=== PATIENT | female | born 1960 | race Caucasian/White ===

== ENCOUNTER 2017-04-25 09:54 | Emergency (ER) | payer OTHER ==
[2017-04-25 10:11] VITALS: BMI 25.3
--- NOTE | 2017-04-25 10:38 | PDOC ---
History of Present Illness - General History Source: Patient Exam Limitations: No Limitations - History of Present Illness Initial Comments: 04/25/17 11:46 The patient is a 56 year old female, with a significant past medical history of HTN, gallstones and chronic back pain s/p surgery (2012 and 2013), who presents to the emergency department with headache and neck pain for the past 3 days. She describes her headahce as diffused throughout her head, ranging from moderate to severe, with radiation down her neck and her back. She notes that she has been taking Tylenol for the pain, sometimes after 4 at a time, with minimal relief of her pain. She states that she has followed up with her PMD regarding the pain and as been prescribed Tylenol. She notes that she usually has headaches but not usually to this severity. The last time the patient was in the ED was in 10/2016 for a headache. She was discharged same day after improvement of symptoms. She also reports dizziness associated with her chief complaint. The patient denies chest pain and shortness of breath. Denies fever, chills, nausea, vomit, diarrhea and constipation. Allergies: None Past surgical history: Cholecystectomy, back surgery (2012, 2013) (At [place]) Social history: No alcohol, tobacco or drug use repoted <Neo Holt - Last Filed: 04/25/17 11:46> <Kwasi Cifuentes - Last Filed: 04/25/17 15:00> - General Chief Complaint: Headache Stated Complaint: HEADACHE Time Seen by Provider: 04/25/17 10:37 Past History <Neo Holt - Last Filed: 04/25/17 11:46> - Past Medical History HTN: Yes Suicide Attempt (Hx): No - Surgical History Abdominal Surgery: Yes (GALLSTONES REMOVED) Cholecystectomy: Yes - Psycho/Social/Smoking Cessation Hx Anxiety: No Suicidal Ideation: No Smoking Status: No Smoking History: Never smoked Have you smoked in the past 12 months: No Number of Cigarettes Smoked Daily: 0 Information on smoking cessation initiated: No Hx Alcohol Use: No Drug/Substance Use Hx: No Substance Use Type: None <Kwasi Cifuentes - Last Filed: 04/25/17 15:00> - Past Medical History Allergies/Adverse Reactions: Allergies Allergy/AdvReac Type Severity Reaction Status Date / Time No Known Allergies Allergy Verified 04/25/17 10:00 Home Medications: Ambulatory Orders Lisinopril [Prinivil -] 50 mg PO DAILY 08/21/16 Cyclobenzaprine HCl [Flexeril 10 mg] 10 mg PO TID PRN #30 tablet 04/25/17 Hydrochlorothiazide [Hctz -] 25 mg PO DAILY 04/25/17 Ibuprofen [Motrin -] 600 mg PO TID #90 tablet 04/25/17 Ondansetron [Zofran *Odt*] 8 mg SL TID #60 od.tablet 04/25/17 Oxycodone HCl/Acetaminophen [Percocet 5-325 mg Tablet] 2 tab PO Q4H #20 tablet MDD 6 04/25/17 Review of Systems - Review of Systems Able to Perform ROS?: Yes Comments:: 04/25/17 11:47 GENERAL/CONSTITUTIONAL: No fever or chills. No weakness. HEAD, EYES, EARS, NOSE AND THROAT: No change in vision. No ear pain or discharge. No sore throat. CARDIOVASCULAR: No chest pain or shortness of breath RESPIRATORY: No cough, wheezing, or hemoptysis. GASTROINTESTINAL: No nausea, vomiting, diarrhea or constipation. GENITOURINARY: No dysuria, frequency, or change in urination. MUSCULOSKELETAL: (+) Neck pain and back pain. No joint or muscle swelling or pain. SKIN: No rash NEUROLOGIC: (+) Headache. No vertigo, loss of consciousness, or change in strength/sensation. ENDOCRINE: No increased thirst. No abnormal weight change HEMATOLOGIC/LYMPHATIC: No anemia, easy bleeding, or history of blood clots. ALLERGIC/IMMUNOLOGIC: No hives or skin allergy. <Neo Holt - Last Filed: 04/25/17 11:46> *Physical Exam - Vital Signs Last Vital Signs Temp Pulse Resp BP Pulse Ox 97.7 F 80 18 148/86 100 04/25/17 10:01 04/25/17 10:01 04/25/17 10:01 04/25/17 10:01 04/25/17 10:01 - Physical Exam Comments: 04/25/17 11:47 GENERAL: Awake, alert, and fully oriented, in no acute distress HEAD: No signs of trauma, normocephalic, atraumatic EYES: PERRLA, EOMI, sclera anicteric, conjunctiva clear ENT: Auricles normal inspection, hearing grossly normal, nares patent, oropharynx clear without exudates. Moist mucosa NECK: Normal ROM, supple, no lymphadenopathy, JVD, or masses LUNGS: No distress, speaks full sentences, clear to auscultation bilaterally HEART: Regular rate and rhythm, normal S1 and S2, no murmurs, rubs or gallops, peripheral pulses normal and equal bilaterally. ABDOMEN: Soft, nontender, normoactive bowel sounds. No guarding, no rebound. No masses EXTREMITIES: Normal inspection, Normal range of motion, no edema. No clubbing or cyanosis. NEUROLOGICAL: (+) Detailed nuero testing revealed weakness in the right hand, arm in the C5-C6 level. Cranial nerves II through XII grossly intact. Normal speech, normal gait, no focal sensorimotor deficits SKIN: Warm, Dry, normal turgor, no rashes or lesions noted. <Neo Holt - Last Filed: 04/25/17 11:46> - Vital Signs Last Vital Signs Temp Pulse Resp BP Pulse Ox 97.7 F 80 18 148/86 100 04/25/17 10:01 04/25/17 10:01 04/25/17 10:01 04/25/17 10:01 04/25/17 10:01 <Kwasi Cifuentes - Last Filed: 04/25/17 15:00> ED Treatment Course - Medications Given in the ED: ED Medications Discontinued Medications Generic Name Dose Route Start Last Admin Trade Name Freq PRN Reason Stop Dose Admin Cyclobenzaprine HCl 10 mg 04/25/17 10:55 04/25/17 11:31 Flexeril - PO 04/25/17 10:56 10 mg ONCE ONE Administration Ondansetron HCl 8 mg 04/25/17 10:55 04/25/17 11:31 Zofran Odt - SL 04/25/17 10:56 8 mg ONCE ONE Administration Oxycodone/Acetaminophen 2 combo 04/25/17 10:55 04/25/17 11:31 Percocet 5/325 - PO 04/25/17 10:56 2 combo ONCE ONE Administration <Neo Holt - Last Filed: 04/25/17 11:46> *DC/Admit/Observation/Transfer - Attestations Scribe Attestion: 04/25/17 11:48 Documentation prepared by Neo Holt, acting as medical malpractice paralegal for Kwasi Cifuentes MD <Neo Hlot - Last Filed: 04/25/17 11:46> - Discharge Dispostion Admit: No - Attestations Physician Attestion: 04/25/17 10:38 I, Dr. Kwasi Cifuentes, attest that this document has been prepared under my direction and personally reviewed by me in its entirety. I further attest, that it accurately reflects all work, treatment, procedures and medical decision -making performed by me. <Kwasi Cifuentes - Last Filed: 04/25/17 15:00> Diagnosis at time of Disposition: Cervical radiculopathy at C6 - Discharge Dispostion Disposition: HOME Condition at time of disposition: Improved - Prescriptions Prescriptions: Cyclobenzaprine HCl [Flexeril 10 mg] 10 mg PO TID PRN #30 tablet PRN Reason: spasm Ibuprofen [Motrin -] 600 mg PO TID #90 tablet Oxycodone HCl/Acetaminophen [Percocet 5-325 mg Tablet] 2 tab PO Q4H #20 tablet MDD 6 Ondansetron [Zofran *Odt*] 8 mg SL TID #60 od.tablet - Referrals Referrals: Stephenie Cao [Primary Care Provider] - Fernie Martin [Non Staff, Medical] - - Patient Instructions Printed Discharge Instructions: DI for Cervical Radiculopathy Additional Instructions: Yakelin - So sorry that this hurts you so much. I wrote some anti inflammatory medicines , medicine for spasm and another medicine in case these medicines upset your stomach....... Percocet and Motrin, Flexeril and ZofranODT. Follow up with Neurology and you might consider getting a referral to pain managment. Return to us any problems. Follow up with your doctor later this week. Best- Dr. Kwasi Cifuentes
[2017-04-25] MEDS ORDERED: ONDANSETRON *ODT* 4 MG TABLET SL ONE (10:55)
[2017-04-25] MEDS ORDERED: CYCLOBENZAPRINE HCL 10 MG TABLET (FP) PO ONE (10:55)
[2017-04-25] MEDS ORDERED: OXYCODONE/APAP 5/325MG COMBO TABLET PO ONE (10:55)
[2017-04-25] MEDS ORDERED: ONDANSETRON *ODT* 4 MG TABLET ONE (11:02)
[2017-04-25] MEDS ORDERED: CYCLOBENZAPRINE HCL 10 MG TABLET (FP) ONE (11:02)
[2017-04-25] MEDS ORDERED: OXYCODONE/APAP 5/325MG COMBO TABLET ONE (11:02)
[2017-04-25 14:01] VITALS: BP 126/73; PULSE 78; TEMP 98.2
== END 2017-04-25 15:07 | disposition home or self-care (01) ==
LOC: JER 09:54
DX: M54.12 Radiculopathy, cervical region (principal); I10 Essential (primary) hypertension
CPT/HCPCS: 70450-TC; 72125-TC; 99282-25

== ENCOUNTER 2017-09-18 08:41 | Emergency (ER) | payer OTHER ==
[2017-09-18 08:45] VITALS: TEMP 98.5; BMI 27.0
--- NOTE | 2017-09-18 08:58 | PDOC ---
History of Present Illness - General History Source: Patient Exam Limitations: No Limitations - History of Present Illness Initial Comments: 09/18/17 09:07 The patient is a 57 year old female, with a significant past medical history of HTN and migraines, who presents to the emergency department with low back pain, chest pain, palpitations and headache to the left side of her head, neck and arm since yesterday. She describes her headache as ranging from moderate to severe, with radiation to her head. She notes that the pain is exacerbated with light. She also reports nausea and dizziness associated with her chief complaint. She describes her lower back pain as ranging from mild to moderate, without radiation or modifying factors. She notes that her chest pain is sharp in nature, without radiation or modifying factors. The patient does have a history of migraines and has come to the ED for evaluation in the past. She notes that her headache today is worse than before. She states that she has take ibuprofen and Tylenol in the past with minimal to no relieve of her symptoms. The patient denies chest pain, shortness of breath, fever, chills, vomit, diarrhea and constipation. Denies dysuria, frequency, urgency and hematuria. Allergies: None Past surgical history: Cholecystectomy, spinal fusion (2012, 2013) Social history: No alcohol, tobacco or drug use reported <Neo Holt - Last Filed: 09/18/17 09:11> <Valerie Garcia - Last Filed: 09/18/17 11:29> - General Chief Complaint: Head/Neck problem Stated Complaint: PAIN/ HEAD, BACK, ARMS Time Seen by Provider: 09/18/17 08:58 Past History <Neo Holt - Last Filed: 09/18/17 09:11> - Past Medical History HTN: Yes - Surgical History Abdominal Surgery: Yes Cholecystectomy: Yes - Suicide/Smoking/Psychosocial Hx Smoking Status: No Smoking History: Never smoked Have you smoked in the past 12 months: No Number of Cigarettes Smoked Daily: 0 Hx Alcohol Use: No Drug/Substance Use Hx: No Substance Use Type: None <Valerie Garcia - Last Filed: 09/18/17 11:29> - Past Medical History Allergies/Adverse Reactions: Allergies Allergy/AdvReac Type Severity Reaction Status Date / Time No Known Allergies Allergy Verified 04/25/17 10:00 Home Medications: Ambulatory Orders Lisinopril [Prinivil -] 50 mg PO DAILY 08/21/16 Hydrochlorothiazide [Hctz -] 25 mg PO DAILY 04/25/17 Ibuprofen [Motrin -] 600 mg PO TID #90 tablet 04/25/17 Review of Systems - Review of Systems Able to Perform ROS?: Yes Comments:: 09/18/17 09:07 GENERAL/CONSTITUTIONAL: No fever or chills. No weakness. HEAD, EYES, EARS, NOSE AND THROAT: (+) Blurry vision. No ear pain or discharge. No sore throat.- CARDIOVASCULAR: (+) Chest pain. No shortness of breath RESPIRATORY: No cough, wheezing, or hemoptysis. GASTROINTESTINAL: (+) Nausea. No vomiting, diarrhea or constipation. GENITOURINARY: No dysuria, frequency, or change in urination. MUSCULOSKELETAL: No joint or muscle swelling or pain. No neck or back pain. SKIN: No rash NEUROLOGIC: (+) Headache and dizziness. No loss of consciousness, or change in strength/sensation. ENDOCRINE: No increased thirst. No abnormal weight change HEMATOLOGIC/LYMPHATIC: No anemia, easy bleeding, or history of blood clots. ALLERGIC/IMMUNOLOGIC: No hives or skin allergy. <Neo Holt - Last Filed: 09/18/17 09:11> *Physical Exam - Vital Signs Last Vital Signs Temp Pulse Resp BP Pulse Ox 98.5 F 98 H 20 160/99 98 09/18/17 08:42 09/18/17 08:42 09/18/17 08:42 09/18/17 08:42 09/18/17 08:42 - Physical Exam Comments: 09/18/17 09:07 GENERAL: Awake, alert, and fully oriented, in no acute distress HEAD: No signs of trauma, normocephalic, atraumatic EYES: PERRLA, EOMI, sclera anicteric, conjunctiva clear ENT: Auricles normal inspection, hearing grossly normal, nares patent, oropharynx clear without exudates. Moist mucosa NECK: Normal ROM, supple, no lymphadenopathy, JVD, or masses LUNGS: No distress, speaks full sentences, clear to auscultation bilaterally HEART: Regular rate and rhythm, normal S1 and S2, no murmurs, rubs or gallops, peripheral pulses normal and equal bilaterally. ABDOMEN: Soft, nontender, normoactive bowel sounds. No guarding, no rebound. No masses EXTREMITIES : Normal inspection, Normal range of motion, no edema. No clubbing or cyanosis. NEUROLOGICAL: Cranial nerves II through XII grossly intact. Normal speech, normal gait, no focal sensorimotor deficits SKIN: Warm, Dry, normal turgor, no rashes or lesions noted. <Neo Holt - Last Filed: 09/18/17 09:11> - Vital Signs Last Vital Signs Temp Pulse Resp BP Pulse Ox 98.5 F 98 H 20 160/99 98 09/18/17 08:42 09/18/17 08:42 09/18/17 08:42 09/18/17 08:42 09/18/17 08:42 <Valerie Garcia - Last Filed: 09/18/17 11:29> Medical Decision Making - Medical Decision Making 09/18/17 11:26 Pt presents to the ED complaining of migraine that is typical of her chronic migraine headaches. Denies new complaints. pain is gradual onset and unrelieved by tylenol. + relief after toradol and reglan. Will discharge home. 09/18/17 11:27 <Valerie Garcia - Last Filed: 09/18/17 11:29> *DC/Admit/Observation/Transfer - Attestations Scribe Attestion: 09/18/17 09:07 Documentation prepared by Neo Holt, acting as medical chemist for Dr. Gambino <Neo Holt - Last Filed: 09/18/17 09:11> - Discharge Dispostion Admit: No <Valerie Garcia - Last Filed: 09/18/17 11:29> Diagnosis at time of Disposition: Migraine headache Qualifiers: Migraine type: without aura Status migrainosus presence: without status migrainosus Intractability: not intractable Qualified Code(s): G43.009 - Migraine without aura, not intractable, without status migrainosus; G43.009 - Migraine without aura, not intractable, without status migrainosus; G43.009 - Migraine without aura, not intractable, without status migrainosus - Discharge Dispostion Disposition: HOME Condition at time of disposition: Good - Referrals Referrals: Stephenie Cao [Primary Care Provider] - - Patient Instructions Printed Discharge Instructions: DI for Migraine Additional Instructions: return to the ED for severe headache, headache with fever or confusion, weakness on one side of your body or face. Make sure that you follow up with your doctor.
[2017-09-18] MEDS ORDERED: METOCLOPRAMIDE HCL INJECTION 10 MG/2 ML VIAL IVPUSH ONE (09:35)
[2017-09-18] MEDS ORDERED: SODIUM CHLORIDE 0.9% 1000 ML INFUS.BAG IV ONE (09:41)
[2017-09-18] MEDS ORDERED: METOCLOPRAMIDE HCL INJECTION 10 MG/2 ML VIAL ONE (09:46)
[2017-09-18] MEDS ORDERED: KETOROLAC TROMETHAMINE 30 MG/1 ML VIAL IVPUSH ONE (10:16)
[2017-09-18] MEDS ORDERED: KETOROLAC TROMETHAMINE 30 MG/1 ML VIAL ONE (10:57)
[2017-09-18 11:56] VITALS: BP 160/90; PULSE 64
== END 2017-09-18 11:57 | disposition home or self-care (01) ==
LOC: JER 08:41
PROC: 3E0333Z Introduction of Anti-inflammatory into Peripheral Vein, Percutaneous Approach (ICD-10-PCS; principal; 2017-09-18)
PROC: 3E033GC Introduction of Other Therapeutic Substance into Peripheral Vein, Percutaneous Approach (ICD-10-PCS; 2017-09-18)
DX: G43.009 Migraine without aura, not intractable, without status migrainosus (principal)
CPT/HCPCS: 96374; 96375; 99284-25

== ENCOUNTER 2017-11-07 17:45 | Observation (INO) | payer OTHER ==
--- NOTE | 2017-11-07 17:56 | PDOC ---
Rapid Medical Evaluation Chief Complaint: Blood Pressure Problem Time Seen by Provider: 11/07/17 17:50 Medical Evaluation: Allergies Allergy/AdvReac Type Severity Reaction Status Date / Time No Known Allergies Allergy Verified 11/07/17 17:48 11/07/17 17:51 The patient presents with a chief complaint of: Bruising of R leg from cardiac cath site with pain to palpation. Catheterization done 2 weeks ago. No stents placed. C/o high BP I have performed a brief in-person evaluation of this patient; Pertinent physical exam findings 198/113 BP. TTP of R thigh over the bruising. No hematoma noted I have ordered the following: CBC, CMP, PT/INR, The patient will proceed to the ED for further evaluation.
--- NOTE | 2017-11-07 18:33 | PDOC ---
History of Present Illness <Alaina Hudson - Last Filed: 11/07/17 21:28> <Luly Gramajo - Last Filed: 11/08/17 00:07> - General Chief Complaint: Blood Pressure Problem Stated Complaint: BLOOD PRESSURE PROBLEM Time Seen by Provider: 11/07/17 17:50 - History of Present Illness Initial Comments: 11/07/17 18:51 The patient presents with her and son. The patient is Bengali speaking and her son translated to obtain the history. The patient is a 57 year old female, with a significant past medical history of HTN and migraines, who presents to the emergency department with lightheadedness , chest tightness nausea, and high blood pressure today. The patient reports she feels she will faint if she stands for too long. She reports feeling nauseous, but denies vomiting. The patient reports feeling sweaty at the onset of her chest tightness and lightheadedness. She reports her BP is 120s over something at baseline, however, presents with a BP of 197/108 at time of presentation. The patient denies chest pain, shortness of breath, fever, chills, vomit, diarrhea and constipation. Denies dysuria, frequency, urgency and hematuria. Allergies: None Past surgical history: Cholecystectomy, spinal fusion (2012, 2013) Social history: No alcohol, tobacco or drug use reported (Alaina Hudson) Past History <Alaina Hudson - Last Filed: 11/07/17 21:28> - Past Medical History COPD: No HTN: Yes - Surgical History Abdominal Surgery: Yes Cholecystectomy: Yes - Suicide/Smoking/Psychosocial Hx Smoking Status: No Smoking History: Never smoked Have you smoked in the past 12 months: No Number of Cigarettes Smoked Daily: 0 Information on smoking cessation initiated: No Hx Alcohol Use: No Drug/Substance Use Hx: No Substance Use Type: None <Luly Gramajo - Last Filed: 11/08/17 00:07> - Past Medical History Allergies/Adverse Reactions: Allergies Allergy/AdvReac Type Severity Reaction Status Date / Time No Known Allergies Allergy Verified 11/07/17 17:48 Home Medications: Ambulatory Orders Lisinopril [Prinivil -] 50 mg PO DAILY 08/21/16 Hydrochlorothiazide [Hctz -] 25 mg PO DAILY 04/25/17 Ibuprofen [Motrin -] 600 mg PO PRN 11/07/17 Review of Systems - Review of Systems Able to Perform ROS?: Yes <Alaina Hudson - Last Filed: 11/07/17 21:28> <Luly Gramajo - Last Filed: 11/08/17 00:07> - Review of Systems Comments:: 11/07/17 18:51 CONSTITUTIONAL: Absent: fever, chills, diaphoresis, generalized weakness, malaise, loss of appetite HEENT: Absent: rhinorrhea, nasal congestion, throat pain, throat swelling, difficulty swallowing, mouth swelling, ear pain, eye pain, visual Changes CARDIOVASCULAR: (+) chest tightness, lightheadedness, hypertension. Absent: syncope, palpitations, irregular heart rate, peripheral edema RESPIRATORY: Absent: cough, shortness of breath, dyspnea with exertion, orthopnea, wheezing, stridor, hemoptysis GASTROINTESTINAL: (+) nausea. Absent: abdominal pain, abdominal distension, vomiting, diarrhea, constipation, melena, hematochezia GENITOURINARY: Absent: dysuria, frequency, urgency, hesitancy, hematuria, flank pain, genital pain MUSCULOSKELETAL: Absent: myalgia, arthralgia, joint swelling SKIN: Absent: rash, itching, pallor HEMATOLOGIC/IMMUNOLOGIC: Absent: easy bleeding, easy bruising, lymphadenopathy, frequent infections ENDOCRINE: Absent: unexplained weight gain, unexplained weight loss, heat intolerance, cold intolerance NEUROLOGIC: Absent: headache, focal weakness or paresthesias, dizziness, unsteady gait, seizure, mental status changes, bladder or bowel incontinence PSYCHIATRIC: Absent: anxiety, depression, suicidal or homicidal ideation, hallucinations. (Alaina Hudson) *Physical Exam <Alaina Hudson - Last Filed: 11/07/17 21:28> <Luly Gramajo - Last Filed: 11/08/17 00:07> - Vital Signs Last Vital Signs Temp Pulse Resp BP Pulse Ox 98.4 F 73 17 149/86 97 11/07/17 18:26 11/07/17 21:29 11/07/17 21:29 11/07/17 21:29 11/07/17 21:29 - Physical Exam Comments: 11/07/17 18:52 GENERAL: Well developed, well nourished. Awake and alert. No acute distress. HEENT: Normocephalic, atraumatic. PERRLA, EOMI. No conjunctival pallor. Sclera are non- icteric. Moist mucous membranes. Oropharynx is clear. NECK: Supple. Full ROM. No JVD. Carotid pulses 2+ and symmetric, without bruits. No thyromegaly. No lymphadenopathy. CARDIOVASCULAR: Regular rate and rhythm. No murmurs, rubs, or gallops. Distal pulses are 2+ and symmetric. PULMONARY: (+) hyperventilating on exam. No evidence of respiratory distress. Lungs clear to auscultation bilaterally. No wheezing, rales or rhonchi. ABDOMINAL: Soft. Non-tender. Non-distended. No rebound or guarding. No organomegaly. Normoactive bowel sounds. MUSCULOSKELETAL Normal range of motion at all joints. No bony deformities or tenderness. No CVA tenderness. EXTREMITIES: No cyanosis. No clubbing. No edema. No calf tenderness. SKIN: Warm and dry. Normal capillary refill. No rashes. No jaundice. NEUROLOGICAL: Alert, awake, appropriate. Cranial nerves 2-12 intact. Normoreflexic in the upper and lower extremities. Normal speech. Toes are down-going bilaterally. Gait is normal without ataxia. PSYCHIATRIC: Cooperative. Good eye contact. Appropriate mood and affect. (Alaina Hudson) Heart Score/ECG Review <Alaina Hudson - Last Filed: 11/07/17 21:28> - History History: Slightly suspicious - Electrocardiogram EKG: Normal - Age Age: 45-65 - Risk Factors Risk Factors Heart Score: Yes Hx Hypertension, Yes Positive family hx of cardiac disease Based on the list above the patient has:: 1-2 risk factors - Troponin Troponin: </= normal limit - Score Heart Score - Total: 2 <Luly Gramajo - Last Filed: 11/08/17 00:07> - ECG Intrepretation Comment:: 11/07/17 18:[address] Gramajo at 18:46 Impression: Normal sinus rhythm. Vent Rate: 60 bpm NM Interval: 146 ms QTc: 436 ms (Alaina Hudson) ED Treatment Course - LABORATORY CBC & Chemistry Diagram: 11/07/17 18:45 11/07/17 18:45 <Alaina Hudson - Last Filed: 11/07/17 21:28> - LABORATORY CBC & Chemistry Diagram: 11/07/17 18:45 11/07/17 18:45 <Luly Gramajo - Last Filed: 11/08/17 00:07> - ADDITIONAL ORDERS Additional order review: Laboratory Results 11/07/17 11/07/17 11/07/17 18:45 18:45 18:45 PT with INR 10.80 INR 0.96 Sodium 140 Potassium 4.1 Chloride 108 H Carbon Dioxide 28 D Anion Gap 4 L BUN 14 Creatinine 0.8 Creat Clearance w eGFR > 60 Random Glucose 91 Calcium 8.5 Magnesium 2.3 Total Bilirubin 0.2 AST 21 ALT 21 Alkaline Phosphatase 107 Creatine Kinase 106 Troponin I < 0.02 B-Natriuretic Peptide 127.70 H Total Protein 7.4 Albumin 3.6 Triglycerides 80 Cholesterol 152 Total LDL Cholesterol 67 HDL Cholesterol 74 H Blood Type A POSITIVE Antibody Screen Negative 11/07/17 18:45 RBC 4.15 MCV 88.8 MCHC 33.0 RDW 14.6 MPV 8.2 Neutrophils % 47.8 Lymphocytes % 41.0 H D Monocytes % 9.5 Eosinophils % 0.9 Basophils % 0.8 - RADIOLOGY Radiology Studies Ordered: Category Date Time Status CHEST X-RAY PORTABLE* [RAD] Stat Radiology 11/07/17 18:35 Taken - Medications Given in the ED: ED Medications Discontinued Medications Generic Name Dose Route Start Last Admin Trade Name Freq PRN Reason Stop Dose Admin Aspirin 325 mg 11/07/17 18:34 11/07/17 18:54 Asa - PO 11/07/17 18:35 Not Given ONCE ONE Aspirin 325 mg 11/07/17 18:35 11/07/17 18:43 Asa - PO 11/07/17 18:36 325 mg ONCE ONE Administration Hydrochlorothiazide 25 mg 11/07/17 20:25 11/07/17 20:33 Hctz - PO 11/07/17 20:26 25 mg ONCE ONE Administration Nitroglycerin 0.4 mg 11/07/17 18:34 11/07/17 18:43 Nitrostat - SL 11/07/17 18:35 0.4 mg ONCE ONE Administration Medical Decision Making <Alaina Hudson - Last Filed: 11/07/17 21:28> <Luly Gramajo - Last Filed: 11/08/17 00:07> - Medical Decision Making 11/07/17 21:28 Dr. Vitale, patient's extract wringer, was paged via phone answering service at this time requesting a call back for doctor to doctor consult. I have been informed Dr. Martino will return the call. (Alaina Hudson) *DC/Admit/Observation/Transfer <Alaina Hudson - Last Filed: 11/07/17 21:28> - Discharge Dispostion Admit: Yes <Luly Gramajo - Last Filed: 11/08/17 00:07> Diagnosis at time of Disposition: Hypertensive urgency Chest pain Qualifiers: Chest pain type: unspecified Qualified Code(s): R07.9 - Chest pain, unspecified - Attestations Scribe Attestion: 11/07/17 18:53 Documentation prepared by Alaina Hudson, acting as ophthalmic medical technologist for Luly Gramajo MD (Alaina Hudson)
[2017-11-07] MEDS ORDERED: ASPIRIN 325 MG TABLET PO ONE ×2 (18:34→18:35)
[2017-11-07] MEDS ORDERED: NITROGLYCERIN SUBLINGUAL 1/150 0.4 MG TAB SL ONE (18:34)
[2017-11-07] MEDS ORDERED: ASPIRIN 325 MG TABLET ONE (18:44)
[2017-11-07 19:16] LABS: BASOPHIL 0.8 % (0-2.0); EOSINOPHIL 0.9 % (0-4.5); MCH 29.3 pg (25.7-33.7); MEAN CELL VOLUME 88.8 fl (80-96); MEAN PLT VOLUME 8.2 fl (7.5-11.1); NEUTROPHILS 47.8 % (42.8-82.8); PLATELET COUNT 334 K/MM3 (134-434); RDW 14.6 % (11.6-15.6); WHITE BLOOD COUNT 7.4 K/mm3 (4.0-10.0)
[2017-11-07 19:43] LABS: INR 0.96 (0.82-1.09); PROTHROMBIN TIME (PATIENT) 10.8 SEC (9.98-11.88)
[2017-11-07 19:48] LABS: ALBUMIN 3.6 g/dl (3.4-5.0); ANION GAP 4 (8-16); CALCIUM 8.5 mg/dL (8.5-10.1); CHOLESTEROL 152 mg/dL (50-200); CO2 28 mmol/L (21-32); GLUCOSE,RANDOM 91 mg/dL (74-106); MAGNESIUM 2.3 mg/dL (1.8-2.4); SGOT/AST 21 U/L (15-37); SGPT/ALT 21 U/L (12-78)
[2017-11-07 19:52] LABS: ALK PHOS 107 U/L (45-117); BILIRUBIN,TOTAL 0.2 mg/dL (0.2-1.0); CPK 106 IU/L (26-192); CREATININE 0.8 mg/dL (0.55-1.02); TOT PROT 7.4 g/dl (6.4-8.2); TROPONIN I < 0.02 ng/ml (0.00-0.05)
[2017-11-07] MEDS ORDERED: HYDROCHLOROTHIAZIDE 25 MG TABLET (FP) PO ONE (20:25)
[2017-11-07] MEDS ORDERED: HYDROCHLOROTHIAZIDE 25 MG TABLET (FP) ONE (20:30)
--- NOTE | 2017-11-07 22:54 | HP ---
Admitting History and Physical - Primary Care Physician PCP: Sergio Reza - Admission History of Present Illness: The patient presents with her and son. The patient is Malay speaking and her son translated to obtain the history. The patient is a 57 year old female, with a significant past medical history of HTN and migraines, who presents to the emergency department with lightheadedness , chest tightness nausea, and high blood pressure today. The patient reports she feels she will faint if she stands for too long. She reports feeling nauseous, but denies vomiting. The patient reports feeling sweaty at the onset of her chest tightness and lightheadedness. She reports her BP is 120s over something at baseline, however, presents with a BP of 197/108 at time of presentation. 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 Home Medications - Allergies Allergies/Adverse Reactions: Allergies Allergy/AdvReac Type Severity Reaction Status Date / Time No Known Allergies Allergy Verified 11/07/17 17:48 - Home Medications Home Medications: Ambulatory Orders Lisinopril [Prinivil -] 50 mg PO DAILY 08/21/16 Hydrochlorothiazide [Hctz -] 25 mg PO DAILY 04/25/17 Ibuprofen [Motrin -] 600 mg PO PRN 11/07/17 Physical Examination Vital Signs: Vital Signs Temperature 98.4 F 11/07/17 18:26 Pulse Rate 73 11/07/17 21:29 Respiratory Rate 17 11/07/17 21:29 Blood Pressure 149/86 11/07/17 21:29 O2 Sat by Pulse Oximetry (%) 97 11/07/17 21:29 Constitutional: Yes: No Distress HENT: Yes: Atraumatic Neck: Yes: Supple Cardiovascular: Yes: Regular Rate and Rhythm Respiratory: Yes: CTA Bilaterally Gastrointestinal: Yes: Normal Bowel Sounds Extremities: Yes: WNL Neurological: Yes: Alert, Oriented Labs: CBC, BMP 11/07/17 18:45 11/07/17 18:45 Problem List - Problems (1) Chest pain Code(s): R07.9 - CHEST PAIN, UNSPECIFIED Qualifiers: Chest pain type: unspecified Qualified Code(s): R07.9 - Chest pain, unspecified (2) Hypertensive urgency Code(s): I10 - ESSENTIAL (PRIMARY) HYPERTENSION Assessment/Plan Laboratory Tests 11/07/17 11/07/17 11/07/17 18:45 18:45 18:45 WBC 7.4 RBC 4.15 Hgb 12.2 D Hct 36.8 MCV 88.8 MCH 29.3 MCHC 33.0 RDW 14.6 Plt Count 334 MPV 8.2 Neutrophils % 47.8 Lymphocytes % 41.0 H D Monocytes % 9.5 Eosinophils % 0.9 Basophils % 0.8 PT with INR 10.80 INR 0.96 Sodium 140 Potassium 4.1 Chloride 108 H Carbon Dioxide 28 D Anion Gap 4 L BUN 14 Creatinine 0.8 Creat Clearance w eGFR > 60 Random Glucose 91 Calcium 8.5 Magnesium 2.3 Total Bilirubin 0.2 AST 21 ALT 21 Alkaline Phosphatase 107 Creatine Kinase 106 Troponin I < 0.02 B-Natriuretic Peptide 127.70 H Total Protein 7.4 Albumin 3.6 Triglycerides 80 Cholesterol 152 Total LDL Cholesterol 67 HDL Cholesterol 74 H Blood Type Antibody Screen 11/07/17 18:45 WBC RBC Hgb Hct MCV MCH MCHC RDW Plt Count MPV Neutrophils % Lymphocytes % Monocytes % Eosinophils % Basophils % PT with INR INR Sodium Potassium Chloride Carbon Dioxide Anion Gap BUN Creatinine Creat Clearance w eGFR Random Glucose Calcium Magnesium Total Bilirubin AST ALT Alkaline Phosphatase Creatine Kinase Troponin I B-Natriuretic Peptide Total Protein Albumin Triglycerides Cholesterol Total LDL Cholesterol HDL Cholesterol Blood Type A POSITIVE Antibody Screen Negative Active Medications Generic Name Dose Route Start Last Admin Trade Name Huy PRN Reason Stop Dose Admin Hydrochlorothiazide 25 mg 11/08/17 10:00 11/08/17 10:35 Hctz - PO 25 mg DAILY ALLY Administration Lisinopril 10 mg 11/08/17 10:30 11/08/17 10:35 Prinivil PO 10 mg DAILY ALLY Administration
[2017-11-08 05:58] VITALS: BMI 26.3
[2017-11-08 07:32] LABS: BASOPHIL 0.8 % (0-2.0); MCH 29.2 pg (25.7-33.7); MCHC 32.6 g/dl (32.0-36.0); MEAN CELL VOLUME 89.3 fl (80-96); MEAN PLT VOLUME 8.2 fl (7.5-11.1); PLATELET COUNT 327 K/MM3 (134-434); RDW 14.4 % (11.6-15.6)
[2017-11-08 07:52] LABS: ALBUMIN 3.8 g/dl (3.4-5.0); ANION GAP 7 (8-16); CALCIUM 9.1 mg/dL (8.5-10.1); CO2 28 mmol/L (21-32); CREATININE 0.6 mg/dL (0.55-1.02); GLUCOSE,RANDOM 85 mg/dL (74-106); SGOT/AST 18 U/L (15-37); SGPT/ALT 21 U/L (12-78)
[2017-11-08 07:54] LABS: ALK PHOS 100 U/L (45-117); BILIRUBIN,TOTAL 0.4 mg/dL (0.2-1.0); TOT PROT 7.4 g/dl (6.4-8.2)
[2017-11-08] MEDS ORDERED: LISINOPRIL PO SCH (10:00)
[2017-11-08] MEDS ORDERED: HYDROCHLOROTHIAZIDE 25 MG TABLET (FP) PO SCH (10:00)
[2017-11-08] MEDS ORDERED: LISINOPRIL 10 MG TABLET (FP) PO SCH (10:30)
--- NOTE | 2017-11-08 11:57 | CON.CARD ---
Consult Consult Specialty:: cardiology Reason for Consultation:: hypertensive crisis - History of Present Illness Chief Complaint: Pt A&Ox3; presently asymptomatic. History of Present Illness: 57 yr old woamn with PMHx HTN, nonobstructive CAD (on coronary angiogram 2 weeks ago at [facility] by Dr. Pj Diaz), now presents with a chief complaint of: heardache, stomach upset. Has bruising of R leg from cardiac cath site with mild pain to palpation. Catheterization done 2 weeks ago. No stents placed. Pertinent physical exam findings in ER 198/113 BP. 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 Cardio/Vascular: Yes: HTN Reproductive: Yes: Postmenopausal ...: No Heme/Onc: No: Anemia Psych: Yes: Anxiety Musculoskeletal: Yes: Chronic low back pain - Past Surgical History Additional Surgical History: coronary angiogram (right groin) 2 weeks ago - Alcohol/Substance Use Hx Alcohol Use: No History of Substance Use: reports: None - Smoking History Smoking history: Never smoked Have you smoked in the past 12 months: No Aproximately how many cigarettes per day: 0 - Social History ADL: Independent 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 Home Medications - Allergies Allergies/Adverse Reactions: Allergies Allergy/AdvReac Type Severity Reaction Status Date / Time No Known Allergies Allergy Verified 11/07/17 17:48 - Home Medications Home Medications: Ambulatory Orders Lisinopril [Prinivil -] 50 mg PO DAILY 08/21/16 Hydrochlorothiazide [Hctz -] 25 mg PO DAILY 04/25/17 Ibuprofen [Motrin -] 600 mg PO PRN 11/07/17 Family Disease History - Family Disease History Family Disease History: Heart Disease: Mother (DC age 66) Review of Systems - Review of Systems Constitutional: reports: Other (headache) Eyes: reports: No Symptoms Cardiovascular: reports: No Symptoms Respiratory: reports: No Symptoms Gastrointestinal: reports: Nausea Genitourinary: reports: No Symptoms Breasts: reports: No Symptoms Reported Musculoskeletal: reports: No Symptoms Integumentary: reports: Bruising (at site of Rt groin cath from 2 weeks ago), Change in Color Neurological: reports: No Symptoms Endocrine: reports: No Symptoms Hematology/Lymphatic: reports: No Symptoms Psychiatric: reports: Anxiety - Risk Factors Known Risk Factors: Yes: Age, Family History, Hypertension Vital Signs: Vital Signs Temperature 98.6 F 11/08/17 10:00 Pulse Rate 76 11/08/17 10:00 Respiratory Rate 18 11/08/17 10:00 Blood Pressure 138/78 11/08/17 10:00 O2 Sat by Pulse Oximetry (%) 100 11/08/17 06:12 Constitutional: Yes: No Distress Eyes: Yes: WNL HENT: Yes: WNL Neck: Yes: WNL Respiratory: Yes: WNL Gastrointestinal: Yes: WNL Renal/: Yes: WNL Cardiovascular: Yes: WNL JVD: No Carotid Bruit: No PMI: Non-Displaced Heart Sounds: Yes: S1, S2 Musculoskeletal: Yes: WNL Extremities: Yes: Other Edema: No Peripheral Pulses WNL: Yes Integumentary: Yes: Bruising Neurological: Yes: WNL ...Motor Strength: WNL Psychiatric: Yes: WNL - Other Data Labs, Other Data: CBC, BMP 11/08/17 05:05 11/08/17 05:05 INR, PTT INR 0.96 (0.82-1.09) 11/07/17 18:45 Troponin, BNP 11/07/17 11/08/17 18:45 07:30 Troponin I < 0.02 Cancelled B-Natriuretic Peptide 127.70 H Troponin, BNP 11/07/17 11/08/17 18:45 07:30 Troponin I < 0.02 Cancelled B-Natriuretic Peptide 127.70 H Abnormal Lab Results 11/07/17 11/07/17 11/08/17 18:45 18:45 05:05 Lymphocytes % 41.0 H D Chloride 108 H Anion Gap 4 L 7 L B-Natriuretic Peptide 127.70 H HDL Cholesterol 74 H Imaging - Results EKG: Image Reviewed (normal study) Other: Image Reviewed (telemetry: no arrhythmias) Problem List - Problems (1) Hypertensive urgency Assessment/Plan: BP now WNL on HCTZ and lisinopril. From cardiac standpoint, pt may be followed as an outpatient by Dr. Vitale and Joe. Code(s): I10 - ESSENTIAL (PRIMARY) HYPERTENSION (2) Migraine headache Code(s): G43.909 - MIGRAINE, UNSP, NOT INTRACTABLE, WITHOUT STATUS MIGRAINOSUS (3) Post-op pain Assessment/Plan: Pt no longer has pain at site of coronary angiogram (right groin); macular brusing around the cath site is resolving. All pulses are WNL; no induration felt. Code(s): G89.18 - OTHER ACUTE POSTPROCEDURAL PAIN (4) Radicular pain of right lower back Code(s): M54.16 - RADICULOPATHY, LUMBAR REGION
[2017-11-08 12:31] LABS: CPK 106 IU/L (26-192); TROPONIN I < 0.02 ng/ml (0.00-0.05)
--- NOTE | 2017-11-08 14:32 | EKG ---
Test Reason : Blood Pressure : / mmHG Vent. Rate : 060 BPM Atrial Rate : 060 BPM P-R Int : 146 ms QRS Dur : 086 ms QT Int : 436 ms P-R-T Axes : 048 024 019 degrees QTc Int : 436 ms NORMAL SINUS RHYTHM NORMAL ECG WHEN COMPARED WITH ECG OF 26-NOV-2016 12:01, NO SIGNIFICANT CHANGE WAS FOUND Confirmed by HOANG ROSA MD ([id number]) on 11/08/2017 2:32:26 PM Referred By: Confirmed By:HOANG ROSA MD
--- NOTE | 2017-11-08 19:50 | DS ---
Physical Examination Vital Signs: Vital Signs Temperature 98.2 F 11/08/17 18:00 Pulse Rate 68 11/08/17 18:00 Respiratory Rate 18 11/08/17 18:00 Blood Pressure 148/90 11/08/17 18:00 O2 Sat by Pulse Oximetry (%) 100 11/08/17 06:12 Constitutional: Yes: No Distress HENT: Yes: Atraumatic Neck: Yes: Supple Cardiovascular: Yes: Regular Rate and Rhythm Respiratory: Yes: CTA Bilaterally Gastrointestinal: Yes: Normal Bowel Sounds Extremities: Yes: WNL Neurological: Yes: Alert, Oriented Labs: CBC, BMP 11/08/17 05:05 11/08/17 05:05 Discharge Summary Reason For Visit: HYPERTENSIVE URGENCY/CHEST PAIN Current Active Problems Chest pain (Acute) Hypertensive urgency (Acute) - Instructions Referrals: Stephenie Cao [Primary Care Provider] - - Home Medications Comprehensive Discharge Medication List: Ambulatory Orders Lisinopril [Prinivil -] 50 mg PO DAILY 08/21/16 Hydrochlorothiazide [Hctz -] 25 mg PO DAILY 04/25/17 Ibuprofen [Motrin -] 600 mg PO PRN 11/07/17 ma home
[2017-11-08 20:37] VITALS: BP 146/85; PULSE 62; TEMP 97.8
== END 2017-11-08 20:00 | disposition home or self-care (01) ==
LOC: JER 17:45 → JERBED 21:36 → J4W 11-08 03:08
PROVIDERS: ADMIT Internal Medicine; ATTEND Internal Medicine
DX: R07.9 Chest pain, unspecified (principal); I16.0 Hypertensive urgency; G43.909 Migraine, unspecified, not intractable, without status migrainosus; M54.16 Radiculopathy, lumbar region; F41.9 Anxiety disorder, unspecified; Z98.61 Coronary angioplasty status
CPT/HCPCS: 36415; 71010-TC; 80053; 80061; 82550; 83721; 83735; 83880; 84443; 84484; 85025; 85610; 86850; 86900; 86901; 93005; 93010; 99285-25; G0378

== ENCOUNTER 2018-10-07 08:54 | Emergency (ER) | payer OTHER ==
[2018-10-07 09:03] VITALS: BP 170/100; PULSE 103; TEMP 98.2; BMI 26.4
[2018-10-07] MEDS ORDERED: ALBUTEROL SO4 2.5/IPRATROPIUM 0.5 INH SOL 3 ML VIAL.NEB. NEB ONE ×2 (09:42→09:44)
--- NOTE | 2018-10-07 09:48 | PDOC ---
History of Present Illness - General Chief Complaint: Respiratory Stated Complaint: PAIN Time Seen by Provider: 10/07/18 09:39 History Source: Patient Exam Limitations: Clinical Condition - History of Present Illness Initial Comments: 10/07/18 09:42 Patient with history of hypertension on meds present with complaint of 2 weeks usual persistent nonproductive cough, nasal congestion, runny nose, headache and intermittent chest tightness. Patient denies fever, chills, sore throat. Patient denies any other symptoms Timing/Duration: other (2 weeks) Past History - Past Medical History Allergies/Adverse Reactions: Allergies Allergy/AdvReac Type Severity Reaction Status Date / Time No Known Allergies Allergy Verified 10/07/18 09:00 Home Medications: Ambulatory Orders Lisinopril [Prinivil -] 50 mg PO DAILY 08/21/16 Hydrochlorothiazide [Hctz -] 25 mg PO DAILY 04/25/17 Ibuprofen [Motrin -] 600 mg PO PRN 11/07/17 Azithromycin [Zithromax 250mg Tablets -] 250 mg PO UTDICT #6 tab 10/07/18 Benzonatate [Tessalon Pearls -] 100 mg PO TID PRN #21 capsule 10/07/18 Ipratropium Virgil 2 spray NS BID PRN #1 spray 10/07/18 Methylprednisolone [Medrol Dose Henry] 4 mg PO ASDIR #21 tablet 10/07/18 COPD: No HTN: Yes Hypercholesterolemia: Yes - Surgical History Abdominal Surgery: Yes Cardiac Surgery: Yes Cholecystectomy: Yes - Suicide/Smoking/Psychosocial Hx Smoking Status: No Smoking History: Never smoked Have you smoked in the past 12 months: No Number of Cigarettes Smoked Daily: 0 Hx Alcohol Use: No Drug/Substance Use Hx: No Substance Use Type: None Hx Substance Use Treatment: No Review of Systems - Review of Systems Able to Perform ROS?: Yes Is the patient limited Kenyan proficient: No Constitutional: No: Chills, Fever, Weakness HEENTM: Yes: See HPI, Nose Congestion. No: Eye Pain, Blurred Vision, Tearing, Recent change in vision, Double Vision, Cataracts, Ear Pain, Ocular Prothesis, Ear Discharge, Nose Pain, Tinnitus, Nose Bleeding, Hearing Loss, Throat Pain, Throat Swelling, Mouth Pain, Dental Problems, Difficulty Swallowing, Mouth Swelling, Other Respiratory: Yes: See HPI, Cough. No: Orthopnea, Shortness of Breath, SOB with Exertion, SOB at Rest, Stridor, Wheezing, Productive cough, Hemoptysis Cardiac (ROS): Yes: See HPI, Chest Tightness. No: Chest Pain, Edema, Irregular Heart Rate, Lightheadedness, Palpitations, Syncope, Other ABD/GI: No: Symptoms Reported, Abdominal Distended, Abd. Pain w/ defecation, Blood Streaked Bowels, Constipated, Diarrhea, Difficulty Swallowing, Nausea, Poor Appetite, Poor Fluid Intake, Rectal Bleeding, Vomiting, Indigestion, Abdominal cramping, Tarry Stools, Other All Other Systems: Reviewed and Negative *Physical Exam - Vital Signs Last Vital Signs Temp Pulse Resp BP Pulse Ox 98.2 F 103 H 20 170/100 98 10/07/18 09:01 10/07/18 09:01 10/07/18 09:01 10/07/18 09:01 10/07/18 09:01 - Physical Exam Comments: 10/07/18 09:44 GENERAL: Well developed, well nourished. Awake and alert. No acute distress. HEENT: Normocephalic, atraumatic. PERRLA, EOMI. No conjunctival pallor. Sclera are non-icteric. Moist mucous membranes. Oropharynx is clear. NECK: Supple. Full ROM. CARDIOVASCULAR: Regular rate and rhythm. No murmurs, rubs, or gallops. Distal pulses are 2+ and symmetric. PULMONARY: Mild diffuse wheezing.No evidence of respiratory distress. Lungs clear to auscultation bilaterally. No rales or rhonchi. ABDOMINAL: Soft. Non-tender. Non-distended. No rebound or guarding. No organomegaly. Normoactive bowel sounds. MUSCULOSKELETAL Normal range of motion at all joints. EXTREMITIES: No cyanosis. No clubbing. No edema. No calf tenderness. SKIN: Warm and dry. Normal capillary refill. No rashes. No jaundice. NEUROLOGICAL: Alert, awake, appropriate. Gait is normal without ataxia. PSYCHIATRIC: Cooperative. Good eye contact. Appropriate mood General Appearance: Yes: Nourished, Appropriately Dressed. No: Apparent Distress Medical Decision Making - Medical Decision Making 10/07/18 09:44 Patient with no significant past medication present with complaint of 2 weeks history of nonproductive cough, nasal congestion, runny nose and headache. Exam significant for mild diffuse wheezing otherwise unremarkable. Nebulizer treatment with Atrovent and albuterol given to help with bronchospasm. Patient stable for discharge with outpatient treatment for URI with PCP follow-up *DC/Admit/Observation/Transfer Diagnosis at time of Disposition: Cough URI (upper respiratory infection) Qualifiers: URI type: unspecified URI Qualified Code(s): J06.9 - Acute upper respiratory infection, unspecified Sinusitis Qualifiers: Sinusitis location: unspecified location Chronicity: acute Recurrence: non- recurrent Qualified Code(s): J01.90 - Acute sinusitis, unspecified - Discharge Dispostion Disposition: HOME Condition at time of disposition: Stable Decision to Admit order: No - Prescriptions Prescriptions: Azithromycin [Zithromax 250mg Tablets -] 250 mg PO UTDICT #6 tab Benzonatate [Tessalon Pearls -] 100 mg PO TID PRN #21 capsule PRN Reason: Cough Ipratropium Virgil 2 spray NS BID PRN #1 spray PRN Reason: nasal congestion Methylprednisolone [Medrol Dose Henry] 4 mg PO ASDIR #21 tablet - Referrals Referrals: Stephenie Cao [Primary Care Provider] - - Patient Instructions Printed Discharge Instructions: DI for Acute Bronchitis - Post Discharge Activity
== END 2018-10-07 10:08 | disposition home or self-care (01) ==
LOC: JERFT 08:54
PROC: 3E0F7GC Introduction of Other Therapeutic Substance into Respiratory Tract, Via Natural or Artificial Opening (ICD-10-PCS; principal; 2018-10-07)
DX: J01.90 Acute sinusitis, unspecified (principal); J06.9 Acute upper respiratory infection, unspecified; I10 Essential (primary) hypertension; E78.00 Pure hypercholesterolemia, unspecified
CPT/HCPCS: 94640; 99281-25

== ENCOUNTER 2019-05-05 11:14 | Emergency (ER) | payer OTHER ==
[2019-05-05 11:22] VITALS: TEMP 98.2; BMI 24.0
[2019-05-05] MEDS ORDERED: METOCLOPRAMIDE HCL INJECTION 10 MG/2 ML VIAL IVPB ONE (12:12)
[2019-05-05] MEDS ORDERED: SODIUM CHLORIDE 0.9% 500 ML INFUS.BAG IV ONE (12:12)
--- NOTE | 2019-05-05 12:17 | PDOC ---
Documentation entered by Mary Wade SCRIBE, acting as scribe for Miguel Chavez MD. Miguel Chavez MD: This documentation has been prepared by the Mauro ashton Sammi, SCRIBE, under my direction and personally reviewed by me in its entirety. I confirm that the documentation accurately reflects all work, treatment, procedures, and medical decision making performed by me. Attending Attestation - Resident Resident Name: Yasmeen Mccracken - ED Attending Attestation I have performed the following: I have examined & evaluated the patient, The case was reviewed & discussed with the resident, I agree w/resident's findings & plan, Exceptions are as noted - HPI HPI: 05/05/19 12:25 The patient is a 58 year old female, with a significant PMH of CAD, cervical disease, hypertension and migraines, who presents to the emergency department for evaluation of 3 days of left sided headache with radiation to left upper back, left face, and left extremities. The patient notes numbness and tingling to her entire left side of her body. She reports history of numbness to the left side of her body about 1 episode a year and has had about 3 episodes in her lifetime, but has never experienced it with a migraine. The patient states her symptoms are different from what she has experienced in the past. The patient has tried Tylenol with little relief. The patient denies chest pain and shortness of breath. Denies fever, chills, nausea, vomit, diarrhea and constipation. Denies dysuria, frequency, urgency and hematuria. Allergies: NKA PCP: Nash - Physicial Exam PE: 05/05/19 13:50 Vitals: Triage vital signs reviewed General Appearance: No acute distress, well nourished, well developed Eyes: Pupils equal reactive round, extraocular movement intact Neck: Supple; No nuchal rigidity Chest Wall: Nontender Cardiac: Regular rate and rhythm, no murmurs, no rubs, no gallops Lungs: Clear to auscultation bilateral, good air movement bilaterally Extremities: Full range of motion to all extremities, no cyanosis, clubbing, or edema Skin: Warm and dry, no rashes or lesions, no rash, no petechiae Neuro: AOX3; Cranial Nerves 2-12 grossly intact, Strength intact to all extremities, Sensation subjective decrease sensation left face, left arm, left leg Psych: Normal mood, normal affect - Medical Decision Making 05/05/19 14:55 Patient with long-standing history of chronic migraines as well as long- standing history of paresthesias to left side of body either related to her migraines or to cervical disc disease. Presents with migraine headache not relieved by her home medication and paresthesias In the emergency department patient received a head CT which demonstrated no acute abnormalities She was treated with migraine medications which has completely resolved his symptoms symptomatology. No longer has any numbness her repeat neurologic examination is normal patient feels much better and is comfortable returning home Patient can follow-up with her neurologist on Tuesday Findings, need for follow-up and strict return instructions discussed patient. Heart Score/ECG Review - ECG Impressions Comment:: 05/05/19 14:56 EKG performed at 1153. Demonstrates normal sinus rhythm 87 bpm. Normal axis. No ST elevations. No T-wave inversions. Interpreted by me.
--- NOTE | 2019-05-05 12:19 | PDOC ---
History of Present Illness - General Chief Complaint: Head/Neck problem Stated Complaint: HEADACHE Time Seen by Provider: 05/05/19 12:00 History Source: Patient Exam Limitations: No Limitations - History of Present Illness Initial Comments: 05/05/19 12:14 [id number] with h/o migraines, CAD (cath in 2017 showed non-obstructive pathology), HTN, cervical disc disease, chronic low back pain, and anxiety who p/w left- sided headache, neck ache and upper back ache radiating down the LUE which has been moderate and constant for the past 3 days. Additionally notes mild numbness /tingling to the whole left side of her body and face, as well as room-spinning dizziness which have all been constant. She tried taking Tylenol without relief. States this is different from her normal headache pain and associated symptoms. Past History - Past Medical History Allergies/Adverse Reactions: Allergies Allergy/AdvReac Type Severity Reaction Status Date / Time No Known Allergies Allergy Verified 10/07/18 09:00 Home Medications: Ambulatory Orders Lisinopril [Prinivil -] 50 mg PO DAILY 08/21/16 Hydrochlorothiazide [Hctz -] 25 mg PO DAILY 04/25/17 Ibuprofen [Motrin -] 600 mg PO PRN 11/07/17 Azithromycin [Zithromax 250mg Tablets -] 250 mg PO UTDICT #6 tab 10/07/18 Benzonatate [Tessalon Pearls -] 100 mg PO TID PRN #21 capsule 10/07/18 Ipratropium [place] 2 spray NS BID PRN #1 spray 10/07/18 Methylprednisolone [Medrol Dose Henry] 4 mg PO ASDIR #21 tablet 10/07/18 COPD: No HTN: Yes Hypercholesterolemia: Yes - Surgical History Abdominal Surgery: Yes Cardiac Surgery: Yes Cholecystectomy: Yes - Suicide/Smoking/Psychosocial Hx Smoking Status: No Smoking History: Never smoked Have you smoked in the past 12 months: No Number of Cigarettes Smoked Daily: 0 Information on smoking cessation initiated: No Hx Alcohol Use: No Drug/Substance Use Hx: No Substance Use Type: None Hx Substance Use Treatment: No Review of Systems - Review of Systems Able to Perform ROS?: Yes Comments:: 05/05/19 12:21 GEN: generalized weakness, no fever, chills, malaise, or weight change HEENT: no ear pain, sore throat, vision change, or eye pain CV: mild chest pain, no palpitations, lightheadedness, syncope, or edema RESP: no cough, wheezing, or SOB GI: no abdominal pain, nausea, vomiting, diarrhea, constipation, or white/black/ bloody stool : no dysuria, hematuria, incontinence, retention, bleeding, or discharge MSK: left neck/upper back pain, generalized muscle weakness/pain, or joint swelling/pain NEURO: headache, vertigo, numbness, tingling, seizure, or focal weakness PSYCH: no substance use, no behavior change SKIN: no jaundice, no rash ROS otherwise negative except as noted in HPI *Physical Exam - Vital Signs Last Vital Signs Temp Pulse Resp BP Pulse Ox 98.2 F 85 16 173/106 H 98 05/05/19 11:18 05/05/19 11:22 05/05/19 11:22 05/05/19 11:22 05/05/19 11:22 - Physical Exam Comments: 05/05/19 12:28 GENERAL: a bit uncomfortable appearing but nontoxic, A/Ox4, mild distress, answers questions appropriately HEENT: PERRLA, EOMI, moist mucous membranes, TMs clear, no mastoid tenderness to percussion, no sabianist tenderness NECK/BACK: no midline ttp, no spinal stepoff or deformity, no hematoma, full ROM , neck supple CARDIOVASCULAR: regular rate/rhythm, normal S1S2, no MGR, strong peripheral pulses, capillary refill <2 seconds, extremities wwp, no edema LUNGS/RESPIRATORY: no respiratory distress, CTAB GI/ABDOMEN: symmetric [id number], normoactive BS, soft, no ttp, no midline pulsatile masses : no CVA tenderness EXTREMITIES: no muscle atrophy, no acute deformity SKIN: warm and dry, no pallor, no jaundice, no rash, no bruising, no skin breakdown, no cuts, no lesions NEUROLOGICAL: GCS 15, CN II-XII intact, stated decreased sensation to light touch along left face and entire left side of body, 5/5 strength proximally and distally, no facial droop, no nystagmus ED Treatment Course - LABORATORY CBC & Chemistry Diagram: 05/05/19 12:21 05/05/19 12:21 Medical Decision Making - Medical Decision Making 05/05/19 12:37 Adult female Pt p/w headache, no reported mechanism for injury, no new red flag symptoms (see HPI). GIBSON not worse on awakening in the AM, no B symptoms, trauma, fever, syncope, vision loss, n/t/w focally, sudden onset, etc. Initial Vital Signs Temp Pulse Resp BP Pulse Ox 98.2 F 92 H 16 190/114 H 98 05/05/19 11:18 05/05/19 11:18 05/05/19 11:18 05/05/19 11:18 05/05/19 11:18 Vital Signs Temperature 98.2 F 05/05/19 11:18 Pulse Rate 85 05/05/19 11:22 Respiratory Rate 16 05/05/19 11:22 Blood Pressure 173/106 H 05/05/19 11:22 O2 Sat by Pulse Oximetry (%) 98 05/05/19 11:22 Exam: As noted in Physical Exam section. DDX IBNLT primary GIBSON syndrome (tension/migraine/cluster/other incl. primary cough GIBSON, exertional GIBSON, postcoital GIBSON), trigeminal neuralgia, zoster, SAH ( huang. sudden onset), venous sinus thrombosis (huang. OCP//menstruating), subdural or epidural hematoma (huang. after trauma or childbirth), ruptured/ acutely expanded aneurysm, very unlikely to be meningitis, glaucoma, atypical PNA, idiopathic intracranial hypertension, GCA (uncommon <50 yo) W/U ordered: CBCD CMP Mg Phos UA UCx hCG Head CT TX ordered: Reglan+Benadryl Unlikely mass lesion/tumor as GIBSON has not been worsening over time, not exacerbated at night. EKG: Reviewed; results as noted in ECG Review section. CXR: Nothing acute CT Head: Nothing acute Laboratory Tests 05/05/19 05/05/19 12:21 12:21 WBC 8.0 RBC 4.69 Hgb 13.7 Hct 41.5 MCV 88.6 MCH 29.2 MCHC 33.0 RDW 14.8 MPV 8.2 Absolute Neuts (auto) 4.9 Neutrophils % 60.5 Lymphocytes % 30.6 D Monocytes % 7.2 Eosinophils % 0.5 D Basophils % 1.2 D Nucleated RBC % 0 Sodium 141 Potassium 4.3 Chloride 107 Carbon Dioxide 28 Anion Gap 6 L BUN 12.4 Creatinine 0.8 Est GFR (CKD-EPI)AfAm 94.85 Est GFR (CKD-EPI)NonAf 81.84 Random Glucose 87 Calcium 8.8 Magnesium 2.2 Total Bilirubin 0.3 AST 25 ALT 26 Alkaline Phosphatase 118 H Troponin I < 0.02 Total Protein 7.6 Albumin 3.9 Reassessment: Patient states GIBSON improved somewhat, no more numbness/tingling at this time. I place an order for Toradol 15 mg IV push, also Ativan 0.5 mg IV push in case anxiety is a component of this. DISCHARGE This patient has gotten significant relief of symptoms while in the ED. States all pain, numbness, tingling, and all other symptoms have resolved. On last reassessment, vitals are wnl, pain is reasonably controlled, and exam is benign. Workup is not concerning for emergency-level pathology at this time. This patient is appropriate for discharge home w/ close outpatient f/u with her neurologist and PCP in 1-3 days. She is comfortable with this plan. She will take Motrin and/or Tylenol for pain. Specific return precautions are discussed and they will come back to the ER if necessary. *DC/Admit/Observation/Transfer Diagnosis at time of Disposition: Headache Qualifiers: Headache type: unspecified Headache chronicity pattern: acute headache Intractability: not intractable Qualified Code(s): R51 - Headache - Discharge Dispostion Disposition: HOME Condition at time of disposition: Stable Decision to Admit order: No - Referrals Referrals: Stephenie Cao [Primary Care Provider] - - Patient Instructions Printed Discharge Instructions: DI for Headache Additional Instructions: You were seen in the ER for a headache. We did an exam, and we did not find any signs of an emergency. Your pain improved with the medications we gave you here in the ER. We did laboratory work, a chest x-ray, an electrocardiogram, and a head CT, and there were no concerning findings. After our assessment, we believe you are not having a medical emergency and you are safe to go home. Please take [id number] pain relievers like naproxen (Aleve) or ibuprofen ( Motrin) or Tylenol. Stay very well-hydrated, and try avoiding foods containing the chemicals tyramine and nitrates (such as chocolate, cheese, and processed meats) because these are associated with migraine-type headaches. Follow up with your primary care provider(s) and neurologist in the next 1-3 days. Call their clinic [facility], tell them you were seen in the er, and tell them you need an appointment. Please come back to the ER at any time, 24 hours a day, for any new or worsening symptoms, like worsening headache, new numbness/tingling, fainting, dizziness, new vision changes, high fever, or other symptoms. If you are having symptoms that make it unsafe to drive, please call 911. - Post Discharge Activity
[2019-05-05] MEDS ORDERED: METOCLOPRAMIDE HCL INJECTION 10 MG/2 ML VIAL ONE (12:25)
[2019-05-05 12:28] LABS: BASO % 1.2 % (0-2.0); EOS % 0.5 % (0-4.5); HEMATOCRIT 41.5 % (32.4-45.2); HEMOGLOBIN 13.7 GM/dL (10.7-15.3); LYMPH % 30.6 % (8-40); MCH 29.2 pg (25.7-33.7); MEAN CELL VOLUME 88.6 fl (80-96); MEAN PLT VOLUME 8.2 fl (7.5-11.1); MONO % 7.2 % (3.8-10.2); NEUT % 60.5 % (42.8-82.8); RBC 4.69 M/mm3 (3.60-5.2); RDW 14.8 % (11.6-15.6)
[2019-05-05 12:58] LABS: ALBUMIN 3.9 g/dl (3.4-5.0); ALK PHOS 118 U/L (45-117); ANION GAP 6 MMOL/L (8-16); BILIRUBIN,TOTAL 0.3 mg/dL (0.2-1); BLOOD UREA NITROGEN 12.4 mg/dL (7-18); CALCIUM 8.8 mg/dL (8.5-10.1); CHLORIDE 107 mmol/L (98-107); CO2 28 mmol/L (21-32); CREATININE 0.8 mg/dL (0.55-1.3); GLUCOSE,RANDOM 87 mg/dL (74-106); MAGNESIUM 2.2 mg/dL (1.8-2.4); POTASSIUM 4.3 mmol/L (3.5-5.1); SGOT/AST 25 U/L (15-37); SGPT/ALT 26 U/L (13-61); SODIUM 141 mmol/L (136-145); TOT PROT 7.6 g/dl (6.4-8.2)
[2019-05-05] MEDS ORDERED: KETOROLAC TROMETHAMINE 15 MG/ML VIAL IVPUSH ONE (13:27)
[2019-05-05] MEDS ORDERED: LORazepam 2 MG/ML SDV VIAL ONE (13:36)
[2019-05-05] MEDS ORDERED: KETOROLAC TROMETHAMINE 15 MG/ML VIAL ONE (13:36)
[2019-05-05 14:41] VITALS: BP 148/96; PULSE 72
[2019-05-05 19:50] LABS: PLATELET COUNT 280 K/MM3 (134-434)
--- NOTE | 2019-05-06 08:30 | EKG ---
Test Reason : Blood Pressure : / mmHG Vent. Rate : 087 BPM Atrial Rate : 087 BPM P-R Int : 154 ms QRS Dur : 084 ms QT Int : 390 ms P-R-T Axes : 062 020 034 degrees QTc Int : 469 ms POOR DATA QUALITY, INTERPRETATION MAY BE ADVERSELY AFFECTED NORMAL SINUS RHYTHM POSSIBLE LEFT ATRIAL ENLARGEMENT LEFT VENTRICULAR HYPERTROPHY NONSPECIFIC ST ABNORMALITY ABNORMAL ECG WHEN COMPARED WITH ECG OF 09-JUL-2018 10:08, NO SIGNIFICANT CHANGE WAS FOUND Confirmed by HOANG ROSA MD ([id number]) on 05/06/2019 8:30:16 AM Referred By: Confirmed By:HOANG ROSA MD
== END 2019-05-05 14:45 | disposition home or self-care (01) ==
LOC: JER 11:14
PROC: 3E033NZ Introduction of Analgesics, Hypnotics, Sedatives into Peripheral Vein, Percutaneous Approach (ICD-10-PCS; principal; 2019-05-05)
PROC: 3E0333Z Introduction of Anti-inflammatory into Peripheral Vein, Percutaneous Approach (ICD-10-PCS; 2019-05-05)
PROC: 3E033GC Introduction of Other Therapeutic Substance into Peripheral Vein, Percutaneous Approach (ICD-10-PCS; 2019-05-05)
PROC: 3E033GC Introduction of Other Therapeutic Substance into Peripheral Vein, Percutaneous Approach (ICD-10-PCS; 2019-05-05)
DX: G43.909 Migraine, unspecified, not intractable, without status migrainosus (principal); R51 Headache; I25.10 Atherosclerotic heart disease of native coronary artery without angina pectoris; I10 Essential (primary) hypertension; Z98.61 Coronary angioplasty status; M54.5 Low back pain; G89.29 Other chronic pain; M50.80 Other cervical disc disorders, unspecified cervical region; F41.9 Anxiety disorder, unspecified
CPT/HCPCS: 36415; 70450-TC; 80053; 83735; 84484; 85025; 93005; 93010; 96374; 96375; 99283-25

== ENCOUNTER 2019-10-24 11:33 | Emergency (ER) | payer OTHER ==
[2019-10-24 11:38] VITALS: BP 170/89; PULSE 86; TEMP 98.3; BMI 23.1
--- NOTE | 2019-10-24 12:07 | PDOC ---
History of Present Illness - General Chief Complaint: Injury Stated Complaint: LT ARM INJ Time Seen by Provider: 10/24/19 11:44 History Source: Patient - History of Present Illness Occurred: reports: this morning Pain Location: reports: upper extremity Method of Injury: Yes: fall Past History - Past Medical History Allergies/Adverse Reactions: Allergies Allergy/AdvReac Type Severity Reaction Status Date / Time No Known Allergies Allergy Verified 10/24/19 11:38 Home Medications: Ambulatory Orders Lisinopril [Prinivil -] 50 mg PO DAILY 08/21/16 Hydrochlorothiazide [Hctz -] 25 mg PO DAILY 04/25/17 Ibuprofen [Motrin -] 600 mg PO PRN 11/07/17 Azithromycin [Zithromax 250mg Tablets -] 250 mg PO UTDICT #6 tab 10/07/18 Benzonatate [Tessalon Pearls -] 100 mg PO TID PRN #21 capsule 10/07/18 Ipratropium [place] 2 spray NS BID PRN #1 spray 10/07/18 Methylprednisolone [Medrol Dose [place]] 4 mg PO ASDIR #21 tablet 10/07/18 COPD: No HTN: Yes Hypercholesterolemia: Yes - Surgical History Abdominal Surgery: Yes Cardiac Surgery: Yes Cholecystectomy: Yes - Psycho Social/Smoking Cessation Hx Smoking Status: No Smoking History: Never smoked Have you smoked in the past 12 months: No Number of Cigarettes Smoked Daily: 0 Information on smoking cessation initiated: No Hx Alcohol Use: No Drug/Substance Use Hx: No Substance Use Type: None Hx Substance Use Treatment: No Review of Systems - Review of Systems Musculoskeletal: Yes: Joint Pain, Joint Swelling. No: Back Pain, Neck Pain Integumentary: Yes: Bruising Neurological: No: Headache, Dizziness *Physical Exam - Vital Signs Last Vital Signs Temp Pulse Resp BP Pulse Ox 98.3 F 86 19 170/89 100 10/24/19 11:36 10/24/19 11:36 10/24/19 11:36 10/24/19 11:36 10/24/19 11:36 - Physical Exam General Appearance: Yes: Appropriately Dressed. No: Apparent Distress HEENT: negative: Scleral Icterus (R), Scleral Icterus (L) Respiratory/Chest: negative: Respiratory Distress Integumentary: positive: Dry, Warm, Bruising (along dorsum of L thumb extending into radial swrist, no sig swelling, FROMI, no snuffbox ttp, bruising only to lateral L elbow) Neurologic: positive: Fully Oriented, Alert, Normal Mood/Affect, Motor Strength 5/5 ED Treatment Course - RADIOLOGY Radiology Studies Ordered: Category Date Time Status ELBOW-LEFT [RAD] Stat Radiology 10/24/19 11:51 Ordered WRIST W/HAND-LEFT* [RAD] Stat Radiology 10/24/19 11:51 Ordered Medical Decision Making - Medical Decision Making 10/24/19 11:57 59-year-old female, no significant history here with L hand and left elbow injury s/p trip and fall at home this a.m. No head injury and not on any blood thinners. No neck back or hip pain and ambulatory since fall see exam R/o hand fx -xr 10/24/19 12:15 XRs neg for fx per radiology. Dc w/OTC meds prn pain Discharge - Discharge Information Problems reviewed: Yes Clinical Impression/Diagnosis: Hand sprain Qualifiers: Encounter type: initial encounter Laterality: left Qualified Code(s): S63.92XA - Sprain of unspecified part of left wrist and hand, initial encounter Elbow abrasion Qualifiers: Encounter type: initial encounter Laterality: left Qualified Code(s): S50.312A - Abrasion of left elbow, initial encounter Condition: Good Disposition: HOME - Follow up/Referral - Patient Discharge Instructions Patient Printed Discharge Instructions: Elbow Sprain Additional Instructions: X-rays did not show any fractures. You most likely sustained a sprain. Take Motrin or Tylenol for pain as needed - Post Discharge Activity
== END 2019-10-24 12:26 | disposition home or self-care (01) ==
LOC: JERFT 11:33
DX: S63.92XA Sprain of unspecified part of left wrist and hand, initial encounter (principal); S50.312A Abrasion of left elbow, initial encounter; W18.39XA Other fall on same level, initial encounter; Y93.89 Activity, other specified; Y92.89 Other specified places as the place of occurrence of the external cause; I10 Essential (primary) hypertension; E78.00 Pure hypercholesterolemia, unspecified
CPT/HCPCS: 73070-TC-LT-FY; 73110-TC-LT-FY; 73130-TC-LT-FY; 99281-25

== ENCOUNTER 2021-04-17 08:07 | Emergency (ER) | payer MEDICARE, OTHER ==
[2021-04-17 08:11] VITALS: TEMP 97.2
[2021-04-17] MEDS ORDERED: METOCLOPRAMIDE HCL INJECTION 10 MG/2 ML VIAL IVPB ONE (08:22)
[2021-04-17] MEDS ORDERED: ACETAMINOPHEN 1000 MG/100 ML VIAL (NON FORMULARY) IVPB ONE (08:22)
[2021-04-17] MEDS ORDERED: SODIUM CHLORIDE 1,000 ML IV STA (08:22)
[2021-04-17] MEDS ORDERED: METOCLOPRAMIDE HCL INJECTION 10 MG/2 ML VIAL ONE (09:03)
[2021-04-17] MEDS ORDERED: ACETAMINOPHEN INJECTION 100 ML IVPB ONE (09:03)
[2021-04-17 09:19] LABS: EPI CELLS 15 /uL (0-25.1); HYALINE CASTS 0 /uL (0-3.1); PH,URINE 6.5 (5.0-8.0); URINE APPEARANCE CLEAR; URINE BACTERIA 455 /uL (0-1359); URINE BILIRUBIN NEGATIVE (NEGATIVE); URINE COLOR YELLOW; URINE GLUCOSE (UA) NEGATIVE (NEGATIVE); URINE KETONE NEGATIVE (NEGATIVE); URINE LEUK ESTERASE 2+ (NEGATIVE); URINE NITRITE NEGATIVE (NEGATIVE); URINE PROTEIN NEGATIVE (NEGATIVE); URINE RBC 9 /uL (0-23.9); URINE UROBILINOGEN 0.2 mg/dL (0.2-1.0); URINE WBC 115 /uL (0-25.8)
[2021-04-17 09:56] LABS: BASO % 0.6 % (0-2.0); EOS % 0.5 % (0-4.5); HEMATOCRIT 38.5 % (32.4-45.2); HEMOGLOBIN 12.8 GM/dL (10.7-15.3); LYMPH % 19.1 % (8-40); MCH 29.4 pg (25.7-33.7); MCHC 33.2 g/dl (32.0-36.0); MEAN CELL VOLUME 88.6 fl (80-96); MEAN PLT VOLUME 8.2 fl (7.5-11.1); MONO % 7.1 % (3.8-10.2); NEUT % 72.7 % (42.8-82.8); PLATELET COUNT 303 K/MM3 (134-434); RBC 4.35 M/mm3 (3.60-5.2); RDW 13.9 % (11.6-15.6); WHITE BLOOD COUNT 10.9 K/mm3 (4.0-10.0)
[2021-04-17 10:04] LABS: INR 0.96 (0.83-1.09); PROTHROMBIN TIME (PATIENT) 11.6 SEC (9.7-13.0)
[2021-04-17 10:16] LABS: CALCIUM 8.8 mg/dL (8.5-10.1)
[2021-04-17 10:17] LABS: ALBUMIN 3.5 g/dl (3.4-5.0)
[2021-04-17 10:20] LABS: CREATININE 0.7 mg/dL (0.55-1.3)
[2021-04-17 10:22] LABS: BILIRUBIN,TOTAL 0.2 mg/dL (0.2-1); TOT PROT 7.5 g/dl (6.4-8.2)
[2021-04-17] MEDS ORDERED: KETOROLAC TROMETHAMINE 60 MG/2 ML VIAL IVPUSH ONE (12:23)
[2021-04-17] MEDS ORDERED: KETOROLAC TROMETHAMINE 15 MG/ML VIAL ONE (12:27)
[2021-04-17 12:41] VITALS: BP 156/93; PULSE 80
== END 2021-04-17 12:41 | disposition home or self-care (01) ==
LOC: JER 08:07
PROC: 3E0333Z Introduction of Anti-inflammatory into Peripheral Vein, Percutaneous Approach (ICD-10-PCS; principal; 2021-04-17)
PROC: 3E033GC Introduction of Other Therapeutic Substance into Peripheral Vein, Percutaneous Approach (ICD-10-PCS; 2021-04-17)
PROC: 3E0333Z Introduction of Anti-inflammatory into Peripheral Vein, Percutaneous Approach (ICD-10-PCS; 2021-04-17)
PROC: 3E033GC Introduction of Other Therapeutic Substance into Peripheral Vein, Percutaneous Approach (ICD-10-PCS; 2021-04-17)
PROC: 3E0337Z Introduction of Electrolytic and Water Balance Substance into Peripheral Vein, Percutaneous Approach (ICD-10-PCS; 2021-04-17)
DX: N30.00 Acute cystitis without hematuria (principal)
CPT/HCPCS: 36415; 74177-TC; 80053; 81003; 83605; 85025; 85610; 87077; 87086; 96361; 96374; 96375; 99285-25; J0131; Q9967

== ENCOUNTER 2021-06-05 12:32 | Emergency (ER) | payer MEDICARE, OTHER ==
[2021-06-05 12:41] VITALS: BP 151/94; PULSE 72; TEMP 98.1; BMI 26.4
[2021-06-05] MEDS ORDERED: KETOROLAC TROMETHAMINE 60 MG/2 ML VIAL IM ONE (13:13)
[2021-06-05] MEDS ORDERED: KETOROLAC TROMETHAMINE 60 MG/2 ML VIAL ONE (13:16)
[2021-06-05 14:15] LABS: BASO % 0.9 % (0-2.0); EOS % 1.3 % (0-4.5); HEMATOCRIT 41.9 % (32.4-45.2); HEMOGLOBIN 13.6 GM/dL (10.7-15.3); LYMPH % 28.1 % (8-40); MCH 28.8 pg (25.7-33.7); MCHC 32.4 g/dl (32.0-36.0); MEAN CELL VOLUME 88.9 fl (80-96); MEAN PLT VOLUME 8.2 fl (7.5-11.1); MONO % 6.6 % (3.8-10.2); NEUT % 63.1 % (42.8-82.8); PLATELET COUNT 326 10^3/uL (134-434); RBC 4.71 M/mm3 (3.60-5.2); RDW 14.3 % (11.6-15.6); WHITE BLOOD COUNT 7.7 K/mm3 (4.0-10.0)
[2021-06-05 14:30] LABS: CHLORIDE 111 mmol/L (98-107); SODIUM 140 mmol/L (136-145)
[2021-06-05 14:32] LABS: CALCIUM 8.5 mg/dL (8.5-10.1)
[2021-06-05 14:33] LABS: ALBUMIN 3.6 g/dl (3.4-5.0); ANION GAP 6 MMOL/L (8-16); CO2 23 mmol/L (21-32); GLUCOSE,RANDOM 104 mg/dL (74-106)
[2021-06-05 14:35] LABS: URIC ACID 4.5 mg/dL (2.6-7.2)
[2021-06-05 14:36] LABS: CREATININE 0.7 mg/dL (0.55-1.3); SGOT/AST 22 U/L (15-37); SGPT/ALT 29 U/L (13-61)
[2021-06-05 14:37] LABS: BILIRUBIN,TOTAL 0.2 mg/dL (0.2-1); TOT PROT 7.5 g/dl (6.4-8.2)
[2021-06-05 14:39] LABS: ALK PHOS 107 U/L (45-117)
[2021-06-05 15:20] LABS: ERYTHROCYTE SEDIMENTATION RATE 17 mm/hr (0-30)
== END 2021-06-05 16:06 | disposition home or self-care (01) ==
LOC: JERFT 12:32
PROC: 3E0233Z Introduction of Anti-inflammatory into Muscle, Percutaneous Approach (ICD-10-PCS; principal; 2021-06-05)
DX: M79.642 Pain in left hand (principal)
CPT/HCPCS: 36415; 73110-TC-LT-FY; 73130-TC-LT-FY; 80053; 84550; 85025; 85651; 86140; 96372; 99284-25

== ENCOUNTER 2021-08-16 09:28 | Emergency (ER) | payer MEDICARE, OTHER ==
[2021-08-16 09:34] VITALS: TEMP 97.9; BMI 28.3
[2021-08-16] MEDS ORDERED: ACETAMINOPHEN 1000 MG/100 ML VIAL (NON FORMULARY) IVPB ONE (10:04)
[2021-08-16] MEDS ORDERED: SODIUM CHLORIDE 0.9% 500 ML INFUS.BAG IV ONE (10:04)
[2021-08-16] MEDS ORDERED: METOCLOPRAMIDE HCL INJECTION 10 MG/2 ML VIAL IVPUSH ONE (10:05)
[2021-08-16] MEDS ORDERED: METOCLOPRAMIDE HCL INJECTION 10 MG/2 ML VIAL ONE (10:13)
[2021-08-16] MEDS ORDERED: ACETAMINOPHEN INJECTION 100 ML IVPB ONE (10:13)
[2021-08-16 10:35] LABS: BASO % 1.4 % (0-2.0); EOS % 1.1 % (0-4.5); HEMATOCRIT 38.5 % (32.4-45.2); HEMOGLOBIN 13.2 GM/dL (10.7-15.3); LYMPH % 34.6 % (8-40); MCH 29.9 pg (25.7-33.7); MCHC 34.4 g/dl (32.0-36.0); MEAN CELL VOLUME 87.1 fl (80-96); MEAN PLT VOLUME 7.8 fl (7.5-11.1); MONO % 7.8 % (3.8-10.2); NEUT % 55.1 % (42.8-82.8); PLATELET COUNT 301 10^3/uL (134-434); RBC 4.42 M/mm3 (3.60-5.2); RDW 15.9 % (11.6-15.6)
[2021-08-16 11:47] LABS: EPI CELLS 5 /uL (0-25.1); HYALINE CASTS 0 /uL (0-3.1); URINE APPEARANCE CLEAR; URINE BACTERIA 46 /uL (0-1359); URINE BILIRUBIN NEGATIVE (NEGATIVE); URINE COLOR YELLOW; URINE GLUCOSE (UA) NEGATIVE (NEGATIVE); URINE KETONE NEGATIVE (NEGATIVE); URINE LEUK ESTERASE 1+ (NEGATIVE); URINE NITRITE NEGATIVE (NEGATIVE); URINE PROTEIN NEGATIVE (NEGATIVE); URINE RBC 7 /uL (0-23.9); URINE UROBILINOGEN 0.2 mg/dL (0.2-1.0); URINE WBC 10 /uL (0-25.8)
[2021-08-16 11:59] LABS: CHLORIDE 112 mmol/L (98-107); SODIUM 141 mmol/L (136-145)
[2021-08-16 12:02] LABS: ANION GAP 5 MMOL/L (8-16); BLOOD UREA NITROGEN 14.2 mg/dL (7-18); CO2 24 mmol/L (21-32); GLUCOSE,RANDOM 105 mg/dL (74-106); LIPASE 86 U/L (73-393)
[2021-08-16 12:03] LABS: ALBUMIN 3.4 g/dl (3.4-5.0)
[2021-08-16 12:05] LABS: CREATININE 0.7 mg/dL (0.55-1.3); SGOT/AST 17 U/L (15-37); SGPT/ALT 23 U/L (13-61)
[2021-08-16 12:07] LABS: BILIRUBIN,TOTAL < 0.1 mg/dL (0.2-1); TOT PROT 7.3 g/dl (6.4-8.2)
[2021-08-16 12:08] LABS: ALK PHOS 113 U/L (45-117)
[2021-08-16 15:18] VITALS: BP 174/97; PULSE 81
== END 2021-08-16 15:18 | disposition home or self-care (01) ==
LOC: JER 09:28
PROC: 3E0333Z Introduction of Anti-inflammatory into Peripheral Vein, Percutaneous Approach (ICD-10-PCS; principal; 2021-08-16)
PROC: 3E033GC Introduction of Other Therapeutic Substance into Peripheral Vein, Percutaneous Approach (ICD-10-PCS; 2021-08-16)
DX: R51.9 Headache, unspecified (principal)
CPT/HCPCS: 36415; 71045-TC-FY; 80053; 81003; 82550; 83690; 83880; 84484; 85025; 87077; 87086; 93005; 93010; 96374; 96375; 99285-25; J0131

== ENCOUNTER 2022-01-05 08:51 | Emergency (ER) | payer OTHER ==
[2022-01-05 08:59] VITALS: TEMP 97.8; BMI 29.2
[2022-01-05] MEDS ORDERED: METOCLOPRAMIDE HCL INJECTION 10 MG/2 ML VIAL IVPUSH ONE (10:10)
[2022-01-05] MEDS ORDERED: SODIUM CHLORIDE 0.9% 500 ML INFUS.BAG IV ONE (10:25)
[2022-01-05] MEDS ORDERED: METOCLOPRAMIDE HCL INJECTION 10 MG/2 ML VIAL IVPB ONE ×2 (10:27→10:31)
[2022-01-05] MEDS ORDERED: ACETAMINOPHEN 1000 MG/100 ML BAG IVPB ONE (10:28)
[2022-01-05] MEDS ORDERED: ACETAMINOPHEN INJECTION 100 ML IVPB ONE (11:00)
[2022-01-05] MEDS ORDERED: METOCLOPRAMIDE HCL INJECTION 10 MG/2 ML VIAL ONE (11:00)
[2022-01-05] MEDS ORDERED: LIDOCAINE 5% TOPICAL PATCH TP ONE (11:28)
[2022-01-05 11:33] LABS: BASO % 0.8 % (0-2.0); EOS % 0.4 % (0-4.5); HEMATOCRIT 40.1 % (32.4-45.2); HEMOGLOBIN 13.4 GM/dL (10.7-15.3); LYMPH % 22.8 % (8-40); MCHC 33.3 g/dl (32.0-36.0); MEAN CELL VOLUME 87.1 fl (80-96); MEAN PLT VOLUME 8.3 fl (7.5-11.1); MONO % 5.6 % (3.8-10.2); NEUT % 70.4 % (42.8-82.8); PLATELET COUNT 285 10^3/uL (134-434); RDW 14.7 % (11.6-15.6); WHITE BLOOD COUNT 8.1 K/mm3 (4.0-10.0)
[2022-01-05 11:47] LABS: CHLORIDE 111 mmol/L (98-107); SODIUM 134 mmol/L (136-145)
[2022-01-05 11:49] LABS: ALBUMIN 3.5 g/dl (3.4-5.0)
[2022-01-05 11:50] LABS: CALCIUM 8.6 mg/dL (8.5-10.1)
[2022-01-05 11:51] LABS: BLOOD UREA NITROGEN 12.7 mg/dL (7-18); CO2 21 mmol/L (21-32); GLUCOSE,RANDOM 91 mg/dL (74-106)
[2022-01-05 11:52] LABS: CREATININE 0.8 mg/dL (0.55-1.3)
[2022-01-05 11:54] LABS: BILIRUBIN,TOTAL 0.4 mg/dL (0.2-1); TOT PROT 8.1 g/dl (6.4-8.2)
[2022-01-05 11:56] LABS: ALK PHOS 109 U/L (45-117)
[2022-01-05 11:57] VITALS: BP 145/75; PULSE 71
[2022-01-05 11:57] LABS: ANION GAP 1 MMOL/L (8-16); SGOT/AST 86 U/L (15-37); SGPT/ALT 20 U/L (13-61)
[2022-01-05] MEDS ORDERED: LIDOCAINE 5% TOPICAL PATCH ONE (12:04)
[2022-01-05 13:38] LABS: CALCIUM 8.6 mg/dL (8.5-10.1)
[2022-01-05 13:39] LABS: BLOOD UREA NITROGEN 11.4 mg/dL (7-18)
[2022-01-05 13:42] LABS: CREATININE 0.7 mg/dL (0.55-1.3)
[2022-01-05] MEDS ORDERED: LIDOCAINE PATCH REMOVAL MC SCH (22:00)
== END 2022-01-05 14:30 | disposition home or self-care (01) ==
LOC: JER 08:51
DX: M54.12 Radiculopathy, cervical region (principal); G43.909 Migraine, unspecified, not intractable, without status migrainosus
CPT/HCPCS: 36415; 71046-TC-FY; 80048; 80053; 85025; 93005; 93010; 99284-25; J0131

== ENCOUNTER 2023-04-08 09:03 | Emergency (ER) | payer OTHER ==
[2023-04-08 09:13] VITALS: RESP 20; TEMP 97.9; BMI 28.3
[2023-04-08] MEDS ORDERED: METOCLOPRAMIDE HCL INJECTION 10 MG/2 ML VIAL IVPB ONE (09:40)
[2023-04-08] MEDS ORDERED: SODIUM CHLORIDE 0.9% 500 ML INFUS.BAG IV ONE (09:41)
[2023-04-08] MEDS ORDERED: MECLIZINE HCL 25 MG TABLET (FP) PO ONE (09:42)
[2023-04-08] MEDS ORDERED: MECLIZINE HCL 25 MG TABLET (FP) ONE (10:02)
[2023-04-08] MEDS ORDERED: METOCLOPRAMIDE HCL INJECTION 10 MG/2 ML VIAL ONE (10:02)
[2023-04-08 10:24] LABS: BASO % 1.3 % (0-2.0); EOS % 0.7 % (0-4.5); HEMATOCRIT 39.6 % (32.4-45.2); HEMOGLOBIN 13.4 GM/dL (10.7-15.3); LYMPH % 35.6 % (8-40); MCH 29.7 pg (25.7-33.7); MCHC 33.8 g/dl (32.0-36.0); MEAN CELL VOLUME 87.9 fl (80-96); MEAN PLT VOLUME 7.7 fl (7.5-11.1); MONO % 8.3 % (3.8-10.2); NEUT % 54.1 % (42.8-82.8); PLATELET COUNT 339 10^3/uL (134-434); RBC 4.51 M/mm3 (3.60-5.2); RDW 14.8 % (11.6-15.6)
[2023-04-08 10:28] LABS: INR 0.93 (0.83-1.09); PROTHROMBIN TIME (PATIENT) 10.8 SEC (9.7-13.0)
[2023-04-08 10:31] LABS: ACTIVATED PTT 31.1 SECONDS (25.2-36.5)
[2023-04-08 10:45] LABS: POTASSIUM 4.2 mmol/L (3.5-5.1)
[2023-04-08 10:47] LABS: ALBUMIN 3.6 g/dl (3.4-5.0); BLOOD UREA NITROGEN 13.1 mg/dL (7-18); CALCIUM 9.3 mg/dL (8.5-10.1)
[2023-04-08 10:50] LABS: CREATININE 0.7 mg/dL (0.55-1.3)
[2023-04-08 10:52] LABS: BILIRUBIN,TOTAL 0.3 mg/dL (0.2-1); TOT PROT 7.6 g/dl (6.4-8.2)
[2023-04-08 11:18] VITALS: PULSE 89
[2023-04-08 12:28] VITALS: BP 187/93
== END 2023-04-08 13:38 | disposition home or self-care (01) ==
LOC: JER 09:03
PROC: 3E033GC Introduction of Other Therapeutic Substance into Peripheral Vein, Percutaneous Approach (ICD-10-PCS; principal; 2023-04-08)
DX: R42 Dizziness and giddiness (principal); R11.0 Nausea; M54.2 Cervicalgia; M25.511 Pain in right shoulder; R07.9 Chest pain, unspecified; R06.02 Shortness of breath; R51.9 Headache, unspecified
CPT/HCPCS: 36415; 70496-TC; 70498-TC; 71045-TC-FY; 80053; 84484; 85025; 85610; 85730; 93005; 93010; 96374; 99285-25; Q9967

== ENCOUNTER 2023-10-07 04:14 | Day surgery (SDC) | payer OTHER ==
[2023-10-05 17:22] VITALS: BMI 28.0
[2023-10-07] MEDS ORDERED: LIDOCAINE HCL/PF 1% SDV 5ML VIAL ONE (07:36)
[2023-10-07] MEDS ORDERED: DEXAMETHASONE SOD PHOSPHATE 10 MG/1 ML VIAL ONE (07:36)
[2023-10-07 10:11] VITALS: RESP 18; TEMP 98.5
[2023-10-07] MEDS ORDERED: LIDOCAINE HCL 1%, 10 MG/ML (50 mL VIAL) INF ONE (11:20)
[2023-10-07] MEDS ORDERED: BUPIVACAINE HCL/PF 0.5% (5MG/ML) 10 ML VIAL IJ ONE ×2 (11:20)
[2023-10-07 11:59] VITALS: BP 167/85; PULSE 71
[2023-10-07] MEDS ORDERED: ACETAMINOPHEN 500 MG TABLET (FP) PO PRN (12:25)
== END 2023-10-07 11:45 | disposition home or self-care (01) ==
LOC: JASU-SURG 04:14
PROVIDERS: ATTEND Pain Medicine Pain Medicine
PROC: 3E0T33Z Introduction of Anti-inflammatory into Peripheral Nerves and Plexi, Percutaneous Approach (ICD-10-PCS; 2023-10-07)
PROC: 3E0T3BZ Introduction of Anesthetic Agent into Peripheral Nerves and Plexi, Percutaneous Approach (ICD-10-PCS; principal; 2023-10-07 11:15)
DX: M47.812 Spondylosis without myelopathy or radiculopathy, cervical region (principal)
CPT/HCPCS: 76000-TC-FY; J1100

== ENCOUNTER 2023-10-22 12:57 | Inpatient (IN) | payer OTHER ==
[2023-10-22] MEDS ORDERED: KETOROLAC TROMETHAMINE 15 MG/ML VIAL IVPUSH ONE (13:43)
[2023-10-22] MEDS ORDERED: SODIUM CHLORIDE 0.9% 500 ML INFUS.BAG IV ONE (13:43)
[2023-10-22] MEDS ORDERED: ONDANSETRON 4 MG/2 ML VIAL IVPUSH ONE (13:43)
[2023-10-22] MEDS ORDERED: FAMOTIDINE 20 MG/50 ML IVPB 20 MG/50 ML MG IVPB ONE (13:44)
[2023-10-22 14:12] LABS: EPI CELLS 10 /uL (0-25.1); HYALINE CASTS 15 /uL (0-3.1); PH,URINE 5.5 (5.0-8.0); URINE APPEARANCE CLEAR; URINE BACTERIA 23 /uL (0-1359); URINE BILIRUBIN NEGATIVE (NEGATIVE); URINE COLOR YELLOW; URINE GLUCOSE (UA) NEGATIVE (NEGATIVE); URINE KETONE TRACE (NEGATIVE); URINE LEUK ESTERASE 2+ (NEGATIVE); URINE NITRITE NEGATIVE (NEGATIVE); URINE PROTEIN TRACE (NEGATIVE); URINE RBC 140 /uL (0-23.9); URINE UROBILINOGEN 0.2 mg/dL (0.2-1.0); URINE WBC 899 /uL (0-25.8)
[2023-10-22] MEDS ORDERED: MAGNESIUM 1GM/D5W - 1 GM/100 ML IVPB IVPB ONE ×2 (14:12→14:31)
[2023-10-22 14:24] LABS: URINE CRYSTALS NO SEEN /hpf
[2023-10-22 14:25] LABS: BASO % 0.7 % (0-2.0); EOS % 0.6 % (0-4.5); HEMATOCRIT 40.4 % (32.4-45.2); HEMOGLOBIN 13.3 GM/dL (10.7-15.3); LYMPH % 17.3 % (8-40); MCH 28.9 pg (25.7-33.7); MCHC 32.9 g/dl (32.0-36.0); MEAN CELL VOLUME 88.1 fl (80-96); MONO % 6.6 % (3.8-10.2); NEUT % 74.8 % (42.8-82.8); PLATELET COUNT 311 10^3/uL (134-434); RBC 4.58 M/mm3 (3.60-5.2); RDW 14.7 % (11.6-15.6); WHITE BLOOD COUNT 9.8 K/mm3 (4.0-10.0)
[2023-10-22] MEDS ORDERED: ONDANSETRON 4 MG/2 ML VIAL ONE (14:30)
[2023-10-22] MEDS ORDERED: KETOROLAC TROMETHAMINE 15 MG/ML VIAL ONE (14:30)
[2023-10-22] MEDS ORDERED: FAMOTIDINE 10 MG/ML VIAL IVPB ONE (14:31)
[2023-10-22] MEDS ORDERED: CEFTRIAXONE 1 GM/50 ML BAG ONE (14:31)
[2023-10-22 14:53] LABS: POTASSIUM 4.3 mmol/L (3.5-5.1)
[2023-10-22 14:55] LABS: CALCIUM 8.9 mg/dL (8.5-10.1)
[2023-10-22 14:56] LABS: ALBUMIN 3.7 g/dl (3.4-5.0); BLOOD UREA NITROGEN 19.7 mg/dL (7-18); MAGNESIUM 2.2 mg/dL (1.8-2.4)
[2023-10-22 14:59] LABS: CREATININE 0.9 mg/dL (0.55-1.3)
[2023-10-22 15:00] LABS: BILIRUBIN,TOTAL 0.2 mg/dL (0.2-1); TOT PROT 7.6 g/dl (6.4-8.2)
[2023-10-22] MEDS ORDERED: HYDROmorphone HCl 2 MG/ML VIAL IVPUSH ONE (17:15)
[2023-10-22] MEDS ORDERED: HYDROmorphone HCl 2 MG/ML VIAL ONE (17:23)
[2023-10-22] MEDS ORDERED: TRIMETHOBENZAMIDE HCL 200MG/2ML INJ IM ONE ×2 (19:51→20:26)
[2023-10-22] MEDS ORDERED: morphine CARPU-JECT 2 MG/1 ML DISP.SYRIN IVPUSH PRN (20:30)
[2023-10-22] MEDS ORDERED: SODIUM CHLORIDE 1,000 ML IV SCH (20:30)
[2023-10-22] MEDS ORDERED: TAMSULOSIN HCL 0.4 MG CAP PO ONE (20:30)
[2023-10-22] MEDS ORDERED: ZOLPIDEM TARTRATE 5 MG TABLET PO PRN (21:30)
[2023-10-22] MEDS ORDERED: PATIENT'S OWN MEDICATION (NON-FORMULARY) (Zolpidem Tartrate 10 MG Tablet) PO SCH (22:00)
[2023-10-22] MEDS ORDERED: CYCLOBENZAPRINE HCL 10 MG TABLET (FP) PO PRN (22:46)
[2023-10-22 23:16] VITALS: BMI 29.2
[2023-10-23] MEDS: HYDROmorphone HCl 2 MG/ML VIAL IVPB PRN ×2 (00:40→13:44)
[2023-10-23] MEDS: SODIUM CHLORIDE 1,000 ML IV SCH ×3 (00:40→17:20)
[2023-10-23] MEDS ORDERED: TRIMETHOBENZAMIDE HCL 200MG/2ML INJ IM PRN (04:00)
[2023-10-23] MEDS: KETOROLAC TROMETHAMINE 15 MG/ML VIAL IVPUSH PRN ×3 (05:24→18:12)
[2023-10-23 08:10] LABS: BASO % 0.5 % (0-2.0); HEMATOCRIT 37.6 % (32.4-45.2); LYMPH % 15.4 % (8-40); MCH 28.6 pg (25.7-33.7); MCHC 31.8 g/dl (32.0-36.0); MEAN CELL VOLUME 89.8 fl (80-96); MEAN PLT VOLUME 8.2 fl (7.5-11.1); MONO % 8.8 % (3.8-10.2); NEUT % 75.3 % (42.8-82.8); PLATELET COUNT 302 10^3/uL (134-434); RBC 4.18 M/mm3 (3.60-5.2); WHITE BLOOD COUNT 8.6 K/mm3 (4.0-10.0)
[2023-10-23 08:17] LABS: POTASSIUM 3.8 mmol/L (3.5-5.1)
[2023-10-23 08:22] LABS: ALBUMIN 3.2 g/dl (3.4-5.0); CALCIUM 8.1 mg/dL (8.5-10.1)
[2023-10-23 08:23] LABS: BLOOD UREA NITROGEN 13.8 mg/dL (7-18); MAGNESIUM 2.3 mg/dL (1.8-2.4)
[2023-10-23 08:25] LABS: CREATININE 0.8 mg/dL (0.55-1.3)
[2023-10-23 08:26] LABS: PHOSPHOROUS 3.3 mg/dL (2.5-4.9)
[2023-10-23 08:27] LABS: BILIRUBIN,TOTAL 0.3 mg/dL (0.2-1); TOT PROT 6.7 g/dl (6.4-8.2)
[2023-10-23] MEDS: metoPROLOL SUCCINATE 25 MG TAB.SR.24H (FP) PO SCH (09:29)
[2023-10-23] MEDS: CHLORTHALIDONE 25 MG TABLET PO SCH (09:29)
[2023-10-23] MEDS: ATORVASTATIN CA 10 MG TABLET (FP) PO SCH (09:29)
[2023-10-23] MEDS: LOSARTAN POTASSIUM 50 MG TABLET PO SCH (09:29)
[2023-10-23] MEDS: amLODIPine BESYLATE 10 MG TABLET (FP) PO SCH (09:29)
[2023-10-23] MEDS: CEFTRIAXONE 1 GM in DEXTROSE 5%-WATER - 50 ML IVPB SCH (09:30)
[2023-10-23] MEDS ORDERED: PATIENT'S OWN MEDICATION (NON-FORMULARY) (Losartan Potassium 100 MG Tablet) PO SCH (10:00)
[2023-10-23] MEDS ORDERED: PANTOPRAZOLE 40 MG TABLET PO SCH (10:00)
[2023-10-23] MEDS: DEXTROSE 5%-0.45% SALINE 1,000 ML IV SCH (21:30)
[2023-10-23] MEDS: morphine SULFATE 4 MG/ML VIAL IVPUSH PRN (21:36)
[2023-10-24] MEDS: morphine SULFATE 4 MG/ML VIAL IVPUSH PRN (06:21)
[2023-10-24 08:32] LABS: BASO % 0.6 % (0-2.0); EOS % 0.4 % (0-4.5); HEMATOCRIT 36.1 % (32.4-45.2); HEMOGLOBIN 11.6 GM/dL (10.7-15.3); LYMPH % 27.4 % (8-40); MCH 28.8 pg (25.7-33.7); MCHC 32.2 g/dl (32.0-36.0); MEAN CELL VOLUME 89.4 fl (80-96); MEAN PLT VOLUME 8.1 fl (7.5-11.1); NEUT % 60.6 % (42.8-82.8); PLATELET COUNT 292 10^3/uL (134-434); RBC 4.04 M/mm3 (3.60-5.2); RDW 14.8 % (11.6-15.6); WHITE BLOOD COUNT 8.2 K/mm3 (4.0-10.0)
[2023-10-24 08:46] LABS: POTASSIUM 3.3 mmol/L (3.5-5.1)
[2023-10-24 08:51] LABS: CALCIUM 8.4 mg/dL (8.5-10.1)
[2023-10-24 08:54] LABS: BLOOD UREA NITROGEN 9.4 mg/dL (7-18)
[2023-10-24 08:57] LABS: BILIRUBIN,TOTAL 0.7 mg/dL (0.2-1); TOT PROT 6.4 g/dl (6.4-8.2)
[2023-10-24 08:58] LABS: CREATININE 0.5 mg/dL (0.55-1.3)
[2023-10-24] MEDS: KETOROLAC TROMETHAMINE 15 MG/ML VIAL IVPUSH PRN (09:46)
[2023-10-24] MEDS: LOSARTAN POTASSIUM 50 MG TABLET PO SCH (09:47)
[2023-10-24] MEDS: amLODIPine BESYLATE 10 MG TABLET (FP) PO SCH (09:47)
[2023-10-24] MEDS: metoPROLOL SUCCINATE 25 MG TAB.SR.24H (FP) PO SCH (09:47)
[2023-10-24] MEDS: CEFTRIAXONE 1 GM in DEXTROSE 5%-WATER - 50 ML IVPB SCH (09:47)
[2023-10-24] MEDS: ATORVASTATIN CA 10 MG TABLET (FP) PO SCH (09:47)
[2023-10-24] MEDS: CHLORTHALIDONE 25 MG TABLET PO SCH (09:48)
[2023-10-24] MEDS: DEXTROSE 5%-0.45% SALINE 1,000 ML IV SCH ×2 (12:53→17:00)
[2023-10-24] MEDS ORDERED: FENTANYL CITRATE/PF 50 MCG/ML VIAL ONE ×4 (15:58→17:26)
[2023-10-24] MEDS ORDERED: KETOROLAC TROMETHAMINE 30 MG/1 ML VIAL ONE (16:10)
[2023-10-24] MEDS ORDERED: ONDANSETRON 4 MG/2 ML VIAL ONE (16:10)
[2023-10-24] MEDS ORDERED: DEXAMETHASONE SOD PHOSPHATE 4 MG/1 ML VIAL ONE (16:10)
[2023-10-24] MEDS ORDERED: PROPOFOL 20 ML ONE (16:31)
[2023-10-24] MEDS ORDERED: MINERAL OIL/PETROLATUM,WHITE 3.5 GM TUBE ONE (16:39)
[2023-10-24] MEDS ORDERED: PROMETHAZINE HCL 25 MG/1 ML VIAL IVPB PRN (16:53)
[2023-10-24] MEDS ORDERED: ONDANSETRON 4 MG/2 ML VIAL IVPUSH PRN (16:53)
[2023-10-24] MEDS ORDERED: CYCLOBENZAPRINE HCL 10 MG TABLET (FP) PO PRN (17:03)
[2023-10-24] MEDS ORDERED: TRIMETHOBENZAMIDE HCL 200MG/2ML INJ IM PRN (17:03)
[2023-10-24] MEDS ORDERED: KETOROLAC TROMETHAMINE 15 MG/ML VIAL IVPUSH PRN (17:03)
[2023-10-24] MEDS ORDERED: ALPRAZolam 0.25 MG TABLET PO ONE (18:15)
[2023-10-24] MEDS ORDERED: POTASSIUM CHLORIDE ORAL LIQUID 20 MEQ/15 ML PO ONE (20:36)
[2023-10-25 08:29] LABS: BASO % 0.3 % (0-2.0); EOS % 0.1 % (0-4.5); HEMATOCRIT 36.1 % (32.4-45.2); HEMOGLOBIN 11.9 GM/dL (10.7-15.3); LYMPH % 22.2 % (8-40); MCH 29.2 pg (25.7-33.7); MCHC 32.9 g/dl (32.0-36.0); MEAN PLT VOLUME 7.8 fl (7.5-11.1); MONO % 9.9 % (3.8-10.2); NEUT % 67.5 % (42.8-82.8); PLATELET COUNT 292 10^3/uL (134-434); RBC 4.05 M/mm3 (3.60-5.2); RDW 14.7 % (11.6-15.6)
[2023-10-25 08:55] LABS: BLOOD UREA NITROGEN 12.6 mg/dL (7-18); CALCIUM 8.9 mg/dL (8.5-10.1)
[2023-10-25 08:58] LABS: CREATININE 0.7 mg/dL (0.55-1.3)
[2023-10-25 09:00] LABS: BILIRUBIN,TOTAL 0.4 mg/dL (0.2-1); TOT PROT 6.7 g/dl (6.4-8.2)
[2023-10-25] MEDS: CEFTRIAXONE 1 GM in DEXTROSE 5%-WATER - 50 ML IVPB SCH (09:41)
[2023-10-25] MEDS: LOSARTAN POTASSIUM 50 MG TABLET PO SCH (09:42)
[2023-10-25] MEDS: ENOXAPARIN NA (PORCINE) 40 MG/0.4 ML DISP.SYRIN SQ SCH (09:42)
[2023-10-25] MEDS: amLODIPine BESYLATE 10 MG TABLET (FP) PO SCH (09:42)
[2023-10-25] MEDS: CHLORTHALIDONE 25 MG TABLET PO SCH (09:42)
[2023-10-25] MEDS: ATORVASTATIN CA 10 MG TABLET (FP) PO SCH (09:42)
[2023-10-25] MEDS ORDERED: FLU VACCINE (FLULAVAL) PF 60 MCG/0.5 ML SYRINGE 2023-2024 IM ONE (12:47)
[2023-10-25] MEDS: DEXTROSE 5%-0.45% SALINE 1,000 ML IV SCH (22:58)
[2023-10-26] MEDS: LOSARTAN POTASSIUM 50 MG TABLET PO SCH (10:14)
[2023-10-26] MEDS: amLODIPine BESYLATE 10 MG TABLET (FP) PO SCH (10:14)
[2023-10-26] MEDS: ATORVASTATIN CA 10 MG TABLET (FP) PO SCH (10:15)
[2023-10-26] MEDS: ENOXAPARIN NA (PORCINE) 40 MG/0.4 ML DISP.SYRIN SQ SCH (10:15)
[2023-10-26] MEDS: CEFTRIAXONE 1 GM in DEXTROSE 5%-WATER - 50 ML IVPB SCH (10:15)
[2023-10-26] MEDS: CHLORTHALIDONE 25 MG TABLET PO SCH (10:15)
[2023-10-26 14:48] VITALS: BP 140/71; PULSE 91; RESP 17; TEMP 98.8
== END 2023-10-26 15:36 | disposition home or self-care (01) | DRG 661 ==
LOC: JER 12:57 → JERBED 18:01 → J7W 22:16 → OBSVTOIN 10-24 10:27
PROVIDERS: ADMIT Internal Medicine; ATTEND Internal Medicine
PROC: BT1FZZZ Fluoroscopy of Left Kidney, Ureter and Bladder (ICD-10-PCS; 2023-10-24)
PROC: 0TC78ZZ Extirpation of Matter from Left Ureter, Via Natural or Artificial Opening Endoscopic (ICD-10-PCS; principal; 2023-10-24 14:00)
PROC: 0T778DZ Dilation of Left Ureter with Intraluminal Device, Via Natural or Artificial Opening Endoscopic (ICD-10-PCS; 2023-10-24 14:00)
DX: N13.6 Pyonephrosis (principal); I10 Essential (primary) hypertension; R31.9 Hematuria, unspecified; R94.31 Abnormal electrocardiogram [ECG] [EKG]; E78.5 Hyperlipidemia, unspecified; G43.909 Migraine, unspecified, not intractable, without status migrainosus
CPT/HCPCS: 0241U-QW; 36415; 74176-TC; 76000-TC-FY; 80053; 81003; 83735; 84100; 85025; 87086; 90686; 93005; 93010; 93306-TC; 94760; 99285-25; C1758; C2617; G0008; G0378

== ENCOUNTER 2023-11-30 10:42 | Day surgery (SDC) | payer OTHER ==
[2023-11-22 16:09] VITALS: BMI 28.1
[2023-11-30 12:27] VITALS: TEMP 97
[2023-11-30 13:04] VITALS: BP 142/84; PULSE 85; RESP 18
== END 2023-11-30 13:17 | disposition home or self-care (01) ==
LOC: FASU-ENDO 10:42
PROVIDERS: ATTEND Internal Medicine Gastroenterology
PROC: 0DB68ZX Excision of Stomach, Via Natural or Artificial Opening Endoscopic, Diagnostic (ICD-10-PCS; 2023-11-30)
PROC: 0DB48ZX Excision of Esophagogastric Junction, Via Natural or Artificial Opening Endoscopic, Diagnostic (ICD-10-PCS; 2023-11-30)
PROC: 0DB98ZX Excision of Duodenum, Via Natural or Artificial Opening Endoscopic, Diagnostic (ICD-10-PCS; principal; 2023-11-30 12:16)
DX: K29.50 Unspecified chronic gastritis without bleeding (principal); B96.81 Helicobacter pylori [H. pylori] as the cause of diseases classified elsewhere; K20.90 Esophagitis, unspecified without bleeding

== ENCOUNTER 2023-12-09 04:24 | Day surgery (SDC) | payer OTHER ==
[2023-12-07 12:36] VITALS: BMI 27.3
[~2023-12-09 04:24] MED LIST: BUPIVACAINE HCL/PF 0.5% (5MG/ML) 10 ML VIAL IJ ONE; IOHEXOL 180 MG/1 ML ML IJ ONE; LIDOCAINE 1% P/F 10 MG/ML VIAL INF ONE
[2023-12-09] MEDS ORDERED: BUPIVACAINE HCL/PF 0.5% (5MG/ML) 10 ML VIAL ONE (07:08)
[2023-12-09] MEDS ORDERED: LIDOCAINE HCL/PF 1% SDV 5ML VIAL ONE (07:08)
[2023-12-09] MEDS ORDERED: ACETAMINOPHEN 500 MG TABLET (FP) PO PRN (09:25)
[2023-12-09 09:59] VITALS: RESP 18
[2023-12-09 12:04] VITALS: BP 158/81; PULSE 77; TEMP 97.8
== END 2023-12-09 11:55 | disposition home or self-care (01) ==
LOC: JASU-SURG 04:24
PROVIDERS: ATTEND Pain Medicine Pain Medicine
PROC: 3E0T33Z Introduction of Anti-inflammatory into Peripheral Nerves and Plexi, Percutaneous Approach (ICD-10-PCS; 2023-12-09)
PROC: 3E0T3BZ Introduction of Anesthetic Agent into Peripheral Nerves and Plexi, Percutaneous Approach (ICD-10-PCS; principal; 2023-12-09 10:15)
DX: M47.812 Spondylosis without myelopathy or radiculopathy, cervical region (principal)
CPT/HCPCS: 76000-TC-FY

== ENCOUNTER 2024-01-06 03:46 | Day surgery (SDC) | payer OTHER ==
[2024-01-04 14:37] VITALS: BMI 28.1
[2024-01-06] MEDS: LIDOCAINE 1% P/F 10 MG/ML VIAL INF ONE
[2024-01-06] MEDS ORDERED: BUPIVACAINE HCL/PF 0.5% (5MG/ML) 10 ML VIAL ONE ×2 (07:19→10:19)
[2024-01-06] MEDS ORDERED: LIDOCAINE HCL/PF 1% SDV 5ML VIAL ONE (07:19)
[2024-01-06] MEDS ORDERED: LIDOCAINE HCL/PF 2% SDV 5ML VIAL ONE ×3 (07:19→10:19)
[2024-01-06] MEDS ORDERED: DEXAMETHASONE SOD PHOSPHATE 10 MG/1 ML VIAL ONE (07:19)
[2024-01-06 09:57] VITALS: RESP 18
[2024-01-06] MEDS: LIDOCAINE HCL 1% PRESERVATIVE FREE - 30ML VIAL IJ ONE (10:32)
[2024-01-06] MEDS: LIDOCAINE HCL/PF 2% SDV 5ML VIAL INF ONE ×3 (10:40)
[2024-01-06] MEDS: DEXAMETHASONE SOD PHOSPHATE 10 MG/1 ML VIAL IM ONE ×2 (10:46)
[2024-01-06] MEDS: BUPIVACAINE HCL/PF 0.5% (5MG/ML) 10 ML VIAL IJ ONE ×3 (10:46)
[2024-01-06] MEDS ORDERED: ACETAMINOPHEN 500 MG TABLET (FP) PO PRN (12:56)
[2024-01-06 13:08] VITALS: TEMP 97.8
[2024-01-06 13:11] VITALS: BP 149/88; PULSE 78
== END 2024-01-06 11:22 | disposition home or self-care (01) ==
LOC: JASU-SURG 03:46
PROVIDERS: ATTEND Pain Medicine Pain Medicine
PROC: 01513ZZ Destruction of Cervical Nerve, Percutaneous Approach (ICD-10-PCS; principal; 2024-01-06 11:15)
DX: M47.812 Spondylosis without myelopathy or radiculopathy, cervical region (principal)
CPT/HCPCS: 76000-TC-FY; J1100

== ENCOUNTER 2024-01-18 09:49 | Day surgery (SDC) | payer OTHER ==
[2024-01-11 14:35] VITALS: BMI 28.1
[2024-01-18] MEDS ORDERED: PROPOFOL 160 ML ONE (09:54)
[2024-01-18] MEDS ORDERED: LIDOCAINE HCL/PF 2% SDV 5ML VIAL ONE (09:54)
[2024-01-18 10:12] VITALS: RESP 18
[2024-01-18 11:42] VITALS: PULSE 81; TEMP 97.4
[2024-01-18 12:06] VITALS: BP 131/74
== END 2024-01-18 12:24 | disposition home or self-care (01) ==
LOC: FASU-ENDO 09:49
PROVIDERS: ATTEND Internal Medicine Gastroenterology
PROC: 0DBN8ZX Excision of Sigmoid Colon, Via Natural or Artificial Opening Endoscopic, Diagnostic (ICD-10-PCS; principal; 2024-01-18 11:15)
DX: Z12.11 Encounter for screening for malignant neoplasm of colon (principal); K63.5 Polyp of colon; K64.1 Second degree hemorrhoids; Z86.010 Personal history of colon polyps

== ENCOUNTER 2024-02-10 04:07 | Day surgery (SDC) | payer OTHER ==
[2024-02-03 10:40] VITALS: BMI 28.0
[2024-02-10] MEDS ORDERED: LIDOCAINE HCL/PF 1% SDV 5ML VIAL ONE (07:15)
[2024-02-10] MEDS ORDERED: BUPIVACAINE HCL/PF 0.5% (5MG/ML) 10 ML VIAL ONE (07:15)
[2024-02-10] MEDS ORDERED: LIDOCAINE HCL/PF 2% SDV 5ML VIAL ONE (07:15)
[2024-02-10] MEDS ORDERED: DEXAMETHASONE SOD PHOSPHATE 10 MG/1 ML VIAL ONE (07:15)
[2024-02-10 08:05] VITALS: RESP 20
[2024-02-10] MEDS ORDERED: ACETAMINOPHEN 500 MG TABLET (FP) PO PRN (08:12)
[2024-02-10] MEDS: LIDOCAINE HCL 2% (50ML VIAL) INF ONE ×2 (09:38→09:43)
[2024-02-10] MEDS: LIDOCAINE HCL 1%, 10 MG/ML (50 mL VIAL) INF ONE ×2 (09:39→09:43)
[2024-02-10] MEDS: BUPIVACAINE HCL/PF 0.5% (5 MG/ML) 30 ML VIAL IJ ONE ×3 (09:40→09:45)
[2024-02-10] MEDS: DEXAMETHASONE SOD PHOSPHATE 10 MG/1 ML VIAL IVPUSH ONE ×2 (09:41→09:45)
[2024-02-10 10:13] VITALS: BP 148/94; PULSE 90; TEMP 96.9
== END 2024-02-10 10:40 | disposition home or self-care (01) ==
LOC: JASU-SURG 04:07
PROVIDERS: ATTEND Pain Medicine Pain Medicine
PROC: 01513ZZ Destruction of Cervical Nerve, Percutaneous Approach (ICD-10-PCS; principal; 2024-02-10 09:30)
DX: M47.812 Spondylosis without myelopathy or radiculopathy, cervical region (principal)
CPT/HCPCS: 76000-TC-FY; J1100

== ENCOUNTER 2024-04-17 06:00 | Day surgery (SDC) | payer OTHER ==
[2024-04-13 09:05] VITALS: BMI 27.9
[2024-04-17] MEDS: LIDOCAINE HCL 1% PRESERVATIVE FREE - 30ML VIAL IJ ONE (09:36)
[2024-04-17] MEDS: IOHEXOL 180 MG/1 ML ML IJ ONE (09:36)
[2024-04-17] MEDS: TRIAMCINOLONE ACET 40MG/1ML VIAL IM ONE (09:38)
[2024-04-17] MEDS: BUPIVACAINE HCL/PF 0.5% (5 MG/ML) 30 ML VIAL IJ ONE (09:38)
[2024-04-17 10:04] VITALS: RESP 20; TEMP 98
[2024-04-17 10:38] VITALS: BP 154/94; PULSE 75
[2024-04-17] MEDS ORDERED: ACETAMINOPHEN 500 MG TABLET (FP) PO PRN (14:37)
== END 2024-04-17 10:30 | disposition home or self-care (01) ==
LOC: JASU-SURG 06:00
PROVIDERS: ATTEND Pain Medicine Pain Medicine
PROC: 3E0U3BZ Introduction of Anesthetic Agent into Joints, Percutaneous Approach (ICD-10-PCS; 2024-04-17)
PROC: 3E0U33Z Introduction of Anti-inflammatory into Joints, Percutaneous Approach (ICD-10-PCS; principal; 2024-04-17 08:45)
DX: M53.3 Sacrococcygeal disorders, not elsewhere classified (principal)
CPT/HCPCS: 76000-TC-FY; J1100

== ENCOUNTER 2024-10-26 20:45 | Emergency (ER) | payer OTHER ==
[2024-10-26 20:53] VITALS: TEMP 97.7; BMI 28.1
[2024-10-26 21:25] LABS: BASO % 0.7 % (0-2.0); EOS % 0.5 % (0-4.5); HEMATOCRIT 40.6 % (32.4-45.2); HEMOGLOBIN 13.4 GM/dL (10.7-15.3); LYMPH % 31.2 % (8-40); MCH 28.9 pg (25.7-33.7); MEAN CELL VOLUME 87.7 fl (80-96); MEAN PLT VOLUME 8.2 fl (7.5-11.1); NEUT % 59.6 % (42.8-82.8); PLATELET COUNT 318 10^3/uL (134-434); RBC 4.63 M/mm3 (3.60-5.2); RDW 14.4 % (11.6-15.6)
[2024-10-26 21:27] LABS: INR 0.98 (0.83-1.09); PROTHROMBIN TIME (PATIENT) 11.1 SEC (9.7-13.0)
[2024-10-26 21:30] LABS: ACTIVATED PTT 30.3 SECONDS (25.2-36.5)
[2024-10-26] MEDS ORDERED: LOSARTAN POTASSIUM 50 MG TABLET ONE (21:35)
[2024-10-26] MEDS ORDERED: amLODIPine BESYLATE 10 MG TABLET (FP) ONE (21:36)
[2024-10-26 21:39] LABS: POTASSIUM 3.5 mmol/L (3.5-5.1)
[2024-10-26] MEDS: LOSARTAN POTASSIUM 50 MG TABLET PO ONE (21:40)
[2024-10-26] MEDS: amLODIPine BESYLATE 10 MG TABLET (FP) PO ONE (21:40)
[2024-10-26 21:42] LABS: ALBUMIN 3.8 g/dl (3.4-5.0); CALCIUM 9.5 mg/dL (8.5-10.1); MAGNESIUM 2.2 mg/dL (1.8-2.4)
[2024-10-26 21:44] LABS: CREATININE 0.9 mg/dL (0.55-1.3)
[2024-10-26] MEDS: SPIRONOLACTONE 25 MG TABLET PO ONE (21:44)
[2024-10-26] MEDS: CHLORTHALIDONE 25 MG TABLET PO ONE (21:44)
[2024-10-26 21:46] LABS: BILIRUBIN,TOTAL 0.3 mg/dL (0.2-1); TOT PROT 7.5 g/dl (6.4-8.2)
[2024-10-26 23:12] VITALS: RESP 18
[2024-10-27 01:11] VITALS: BP 156/94; PULSE 76
== END 2024-10-27 01:18 | disposition home or self-care (01) ==
LOC: JER 20:45
DX: R51.9 Headache, unspecified (principal); M54.2 Cervicalgia; I10 Essential (primary) hypertension; R20.0 Anesthesia of skin
CPT/HCPCS: 36415; 70450-TC; 70496-TC; 70498-TC; 71045-TC-FY; 80053; 83735; 84484; 85025; 85610; 85730; 93005; 93010; 99285-25

== ENCOUNTER 2024-12-25 20:00 | Emergency (ER) | payer OTHER ==
[2024-12-25 20:15] VITALS: RESP 20; TEMP 98.2; BMI 27.7
[2024-12-25 20:38] LABS: INR 0.98 (0.83-1.09); PROTHROMBIN TIME (PATIENT) 10.8 SEC (9.7-13.0)
[2024-12-25 20:39] LABS: BASO % 0.7 % (0-2.0); HEMATOCRIT 41.9 % (32.4-45.2); HEMOGLOBIN 13.8 GM/dL (10.7-15.3); LYMPH % 40.2 % (8-40); MCH 28.9 pg (25.7-33.7); MCHC 32.9 g/dl (32.0-36.0); MEAN CELL VOLUME 87.9 fl (80-96); MEAN PLT VOLUME 7.7 fl (7.5-11.1); MONO % 7.8 % (3.8-10.2); NEUT % 50.3 % (42.8-82.8); PLATELET COUNT 336 10^3/uL (134-434); RBC 4.76 M/mm3 (3.60-5.2); RDW 14.3 % (11.6-15.6); WHITE BLOOD COUNT 7.8 K/mm3 (4.0-10.0)
[2024-12-25 20:41] LABS: ACTIVATED PTT 30.4 SECONDS (25.2-36.5)
[2024-12-25 20:58] LABS: POTASSIUM 3.6 mmol/L (3.5-5.1)
[2024-12-25 21:00] LABS: CALCIUM 9.3 mg/dL (8.5-10.1)
[2024-12-25 21:01] LABS: ALBUMIN 3.8 g/dl (3.4-5.0); BLOOD UREA NITROGEN 10.8 mg/dL (7-18)
[2024-12-25 21:04] LABS: CREATININE 0.8 mg/dL (0.55-1.3)
[2024-12-25 21:05] LABS: BILIRUBIN,TOTAL 0.3 mg/dL (0.2-1)
[2024-12-25 21:06] LABS: TOT PROT 7.6 g/dl (6.4-8.2)
[2024-12-25 21:44] VITALS: BP 186/99; PULSE 85
[2024-12-25] MEDS ORDERED: amLODIPine BESYLATE 10 MG TABLET (FP) ONE (21:54)
[2024-12-25] MEDS: amLODIPine BESYLATE 10 MG TABLET (FP) PO ONE (21:57)
== END 2024-12-25 22:55 | disposition home or self-care (01) ==
LOC: JER 20:00
DX: I10 Essential (primary) hypertension (principal); R20.0 Anesthesia of skin; R53.1 Weakness; R11.0 Nausea; H53.8 Other visual disturbances
CPT/HCPCS: 36415; 70450-TC; 70496-TC; 70498-TC; 80053; 83735; 84484; 85025; 85610; 85730; 86850; 86900; 86901; 93005; 93010; 99285-25